=== PATIENT | female | born 1965 | race Caucasian/White ===

== ENCOUNTER 2022-10-13 18:05 | Emergency (ER) | payer MEDICAID, SELFPAY ==
--- NOTE | 2022-10-13 18:10 | XRR_ITS ---
PROCEDURE INFORMATION: Exam: XR Abdomen Exam date and time: 10/13/2022 7:48 PM Age: 57 years old Clinical indication: Constipation TECHNIQUE: Imaging protocol: Radiologic exam of the abdomen. Views: Frontal supine view of the abdomen. 1 View. COMPARISON: No relevant prior studies available. FINDINGS: Gastrointestinal tract: Scattered gas throughout the colon with minimal visible stool. Scattered gas within normal caliber small bowel. Linear gas lucencies to the left and right of the lumbar spine are most likely within the bowel. Retroperitoneal or intraperitoneal gas cannot be entirely excluded. Bones/joints: Unremarkable. XR/XR KUB [id number] IMPRESSION: 1. No evidence for obstruction or constipation. 2. Linear gas lucencies in the central abdomen may be within the bowel. Retroperitoneal or intraperitoneal gas cannot be entirely excluded. Follow-up upright views of the abdomen versus CT imaging is recommended.
[2022-10-13 18:33] VITALS: BP 128/89; PULSE 105; RESP 16; TEMP 37; O2SAT 95; BMI 17.7
--- NOTE | 2022-10-13 18:48 | W.ED.ABDPA2 ---
HPI - Abdominal Pain General: Chief Complaint: Abdominal Pain Stated Complaint: Cant Have A BM Time Seen by Provider: 10/13/22 18:43 Source: patient Mode of arrival: ambulatory Limitations: no limitations History of Present Illness: 57-year-old female states that she has not had a bowel movement and 7 days. She states that she started to have bloating and abdominal pain states her pain is low in nature she states it is cramping. She denies any vomiting she denies any fever denies any worsening improving factors. Associated Symptoms: Reports constipation; Denies chills, dysuria and fever(s) Review of Systems Const: Denies: fever(s), chills, body aches or change in appetite Eyes: Denies: blurry vision or eye discomfort ENMT: Denies: throat pain or dental pain Card: Denies: chest pain Resp: Denies: dyspnea GI: Reports: abdominal pain and constipation : Denies: dysuria Musc: Denies: neck pain or back pain Skin/Breast: Denies: rash Neuro: Denies: headache(s) Psych: Denies: depression Jasmeet/Lymph: Denies: easy bruising All/Imm: Denies: urticaria PFS ED PFSH: Medical History (Updated 10/13/22 @ 20:09 by Louis Camarena MD) No pertinent past medical history Social History Smoking and tobacco status: current every day smoker Physical Exam Const: COMMON NORMALS: no acute distress, patient oriented x3 and healthy appearing HENMT: COMMON NORMALS: normocephalic and atraumatic HEAD & SCALP: normocephalic and atraumatic Eye: COMMON NORMALS: Equal, round and reactive pupils present and EOMs intact bilaterally PUPIL: Yes Equal, round and reactive pupils present Neck/C-Spine: COMMON NORMALS: full ROM and supple Chest: COMMONS NORMALS: normal inspection of the chest and normal palpation of entire chest wall Resp: COMMON NORMALS: normal respiratory effort, No retractions, No use of accessory muscles and clear to auscultation bilaterally AUSCULTATION: clear to auscultation bilaterally Cardio: COMMON NORMALS: regular rate, regular rhythm and No murmurs present (Cardio) RATE: regular rate RHYTHM: regular rhythm GI: COMMON NORMALS: Normal to inspection, nondistended, normoactive bowel sounds present, Soft to palpation, non-tender and no masses PALPATION: Yes Soft to palpation Extremity: COMMON NORMALS: normal to inspection and full ROM Neuro: COMMON NORMALS: patient oriented x3, moves all extremities and no focal motor deficits Psych: COMMON NORMALS: mental status grossly normal, Normal thought process present and cooperative THOUGHT PROCESS: Normal thought process present Skin: COMMON NORMALS: no rashes or lesions noted and no wounds GENERAL SKIN EXAM: no rashes or lesions noted Course Vital Signs: Vital signs: Vital Signs Temperature 98.6 F 10/13/22 18:33 Pulse Rate 105 H 10/13/22 18:33 Respiratory Rate 18 10/13/22 19:27 Blood Pressure 134/97 10/13/22 19:30 Pulse Oximetry 95 10/13/22 19:30 Oxygen Delivery Me thod 10/13/22 18:33 MDM - Abdominal Pain Medical Decision Making Patient presents here with abdominal pain her pain is improved here CT scan shows no acute abnormalities her blood work is normal as well. We will get her follow-up with surgery she is to return if worsening she understands agrees to plan. Lab Data 10/13/22 19:00 10/13/22 19:00 Labs/Radiology: Radiology Impressions KUB X-Ray 10/13/22 18:10 IMPRESSION: 1. No evidence for obstruction or constipation. 2. Linear gas lucencies in the central abdomen may be within the bowel. Retroperitoneal or intraperitoneal gas cannot be entirely excluded. Follow-up upright views of the abdomen versus CT imaging is recommended. Abdomen/Pelvis CT 10/13/22 18:58 IMPRESSION: 1. No acute findings. 2. Right hemicolectomy changes. COMMENTS: Consistent with the [employer]'s Incidental Findings Committee white paper (J Am Carmencita Radiol 2018): Any incidental renal lesion less than 1 cm or classified as too small to characterize, or any incidental cystic renal lesion characterized as simple-appearing, is likely benign. No follow-up imaging is recommended for these lesions per consensus recommendations based on imaging criteria. Laboratory Results WBC 8.0 10^3/uL (4.0-10.0) 10/13/22 19:00 RBC 4.61 10^6/uL (4.1-5.3) 10/13/22 19:00 Hgb 13.8 g/dL (11.5-15.3) 10/13/22 19:00 Hct 40.7 % (37.0-47.0) 10/13/22 19:00 MCV 88.3 fl (81-99) 10/13/22 19:00 MCH 29.9 pg (28.0-34.0) 10/13/22 19:00 MCHC 33.9 g/dL (30.0-36.0) 10/13/22 19:00 RDW 13.2 % (12.1-15.1) 10/13/22 19:00 Plt Count 289 10^3/cmm (130-400) 10/13/22 19:00 MPV 9.7 fL (7.4-10.4) 10/13/22 19:00 Neut % (Auto) 61.6 % 10/13/22 19:00 Lymph % (Auto) 29.6 % 10/13/22 19:00 [place] % (Auto) 7.4 % 10/13/22 19:00 Eos % (Auto) 0.7 % 10/13/22 19:00 Baso % (Auto) 0.6 % 10/13/22 19:00 Neut # (Auto) 4.94 10^3/uL (1.8-7.7) 10/13/22 19:00 Lymph # (Auto) 2.4 10^3/uL (0.8-4.8) 10/13/22 19:00 [place] # (Auto) 0.6 10^3/uL (0.2-0.9) 10/13/22 19:00 Eos # (Auto) 0.1 10^3/uL (0.0-0.8) 10/13/22 19:00 Baso # (Auto) 0.1 10^3/uL (0.0-0.1) 10/13/22 19:00 Nucleated RBC % (auto) 0 % 10/13/22 19:00 Nucleated RBCs # 0.0 /100WBC 10/13/22 19:00 Sodium 141 mmol/L (136-145) 10/13/22 19:00 Potassium 4.1 mmol/L (3.5-5.1) 10/13/22 19:00 Chloride 108 mmol/L (98-107) H 10/13/22 19:00 Carbon Dioxide 22 mmol/L (22-29) 10/13/22 19:00 Anion Gap 15.1 (5-19) 10/13/22 19:00 BUN 13 mg/dL (6-20) 10/13/22 19:00 Creatinine 0.8 mg/dL (0.5-0.9) 10/13/22 19:00 GFR Calculation 73.9 mL/min (90-130) L 10/13/22 19:00 Glucose 99 mg/dL (65-115) 10/13/22 19:00 Calculated Osmolality 292 mOsm/kg (285-295) 10/13/22 19:00 Lactate 0.7 mmol/L (0.5-2.2) 10/13/22 19:31 Calcium 9.5 mg/dL (8.5-10.5) 10/13/22 19:00 Total Bilirubin 0.2 mg/dL (0.15-1.2) 10/13/22 19:00 AST 17 U/L (0-32) 10/13/22 19:00 ALT 10 U/L (0-33) 10/13/22 19:00 Alkaline Phosphatase 73 U/L (35-105) 10/13/22 19:00 Total Protein 6.9 g/dL (6.6-8.7) 10/13/22 19:00 Albumin 4.4 g/dL (3.5-5.2) 10/13/22 19:00 Globulin 2.5 g/dL (1.3-4.6) 10/13/22 19:00 Lipase 35 U/L (13-60) 10/13/22 19:00 Discharge Plan Discharge Patient Disposition: Home Clinical Impression: Abdominal pain Condition: Stable Prescriptions: New hydrocodone-acetaminophen 5-325 mg tablet 1 tab PO Q6H PRN (Reason: pain) Qty: 14 0RF ondansetron 4 mg tablet,disintegrating 4 mg PO Q6H PRN (Reason: nausea and vomiting) Qty: 14 0RF No Action benzonatate 100 mg capsule 100 mg PO BID PRN (Reason: cough) 5 Days Qty: 10 0RF doxycycline hyclate 100 mg tablet 100 mg PO BID 5 Days Qty: 10 0RF prednisone 20 mg tablet 20 mg PO BID 5 Days Qty: 10 0RF amoxicillin-pot clavulanate 875-125 mg tablet 1 tab PO BID 7 Days Qty: 14 0RF guaifenesin 200 mg tablet 200 mg PO Q4H PRN (Reason: congestion) Qty: 30 0RF Discharge Orders: Discharge ED (Routine); Ordered 10/13/22 Ordered By: Louis Camarena Referrals: Layton Corona MD [Physician] - 1-3 days Discharge Diet: Advance as tolerated Discharge Activity: Resume usual activity Patient Instructions: Abdominal Pain (ED), Opioid Safety Coding Level of Care Code ED Insurance Verifier for Chg Fwd Exam Comprehensive
--- NOTE | 2022-10-13 18:58 | CTR_ITS ---
PROCEDURE INFORMATION: Exam: CT Abdomen And Pelvis With Contrast Exam date and time: 10/13/2022 7:34 PM Age: 57 years old Clinical indication: Abdominal pain; Acute; Prior surgery; Surgery date: 6+ months; Surgery type: Intestinal; Additional info: Abd pain TECHNIQUE: Imaging protocol: Computed tomography of the abdomen and pelvis with contrast. Radiation optimization: All CT scans at this facility use at least one of these dose optimization techniques: automated exposure control; mA and/or kV adjustment per patient size (includes targeted exams where dose is matched to clinical indication); or iterative reconstruction. Contrast material: OMNIPAQUE 350; Contrast volume: 95 ml; Contrast route: INTRAVENOUS (IV); COMPARISON: No relevant prior studies available. RADIATION DOSE METRICS: Total DLP (mGy-cm): 344.22 FINDINGS: Liver: Right liver lobe cyst, Hounsfield units less than 20. Multiple tiny hypodensities in the liver are too small to characterize but are most likely cysts. Gallbladder and bile ducts: Partially contracted gallbladder. The bile ducts are normal. Pancreas: Diffuse borderline dilatation of the pancreatic duct. No focal pancreatic lesion identified. Spleen: Normal. No splenomegaly. Adrenal glands: Normal. No mass. Kidneys and ureters: Right renal cyst, Hounsfield units less than 20. The kidneys are otherwise unremarkable. No calculus or hydronephrosis. Stomach and bowel: Stomach is decompressed. No wall thickening. Right hemicolectomy with ileocolonic anastomosis to the mid transverse colon. The small bowel and colon are otherwise unremarkable. No obstruction. Appendix: The appendix is surgically absent. Intraperitoneal space: Unremarkable. No free air. No significant fluid collection. Vasculature: Arterial calcifications. No aneurysm. Lymph nodes: Unremarkable. No enlarged lymph nodes. Urinary bladder: Unremarkable as visualized. Reproductive: Prominent left adnexal vessels. This can be seen with pelvic congestion syndrome. The uterus and ovaries are unremarkable. Bones/joints: Unremarkable. No acute fracture. Soft tissues: Unremarkable. CT/CT abdomen pelvis w con* [id number] IMPRESSION: 1. No acute findings. 2. Right hemicolectomy changes. COMMENTS: Consistent with the [place] [employer]'s Incidental Findings Committee white paper (J Am Carmencita Radiol 2018): Any incidental renal lesion less than 1 cm or classified as too small to characterize, or any incidental cystic renal lesion characterized as simple-appearing, is likely benign. No follow-up imaging is recommended for these lesions per consensus recommendations based on imaging criteria.
[2022-10-13 19:05] VITALS: O2SAT 97
[2022-10-13 19:05] LABS: Basophils # 0.1 10^3/uL (0.0-0.1); Basophils % 0.6 %; Eosinophils # 0.1 10^3/uL (0.0-0.8); Eosinophils % 0.7 %; Hematocrit 40.7 % (37.0-47.0); Hemoglobin 13.8 g/dL (11.5-15.3); Lymphocytes # 2.4 10^3/uL (0.8-4.8); Lymphocytes % 29.6 %; Mean Corpuscular HGB Conc 33.9 g/dL (30.0-36.0); Mean Corpuscular Hemoglobin 29.9 pg (28.0-34.0); Mean Corpuscular Volume 88.3 fl (81-99); Mean Platelet Volume 9.7 fL (7.4-10.4); Monocytes # 0.6 10^3/uL (0.2-0.9); Monocytes % 7.4 %; Neutrophils # 4.94 10^3/uL (1.8-7.7); Neutrophils % 61.6 %; Nucleated Red Blood Cells % 0 %; Platelet Count 289 10^3/cmm (130-400); Red Blood Count 4.61 10^6/uL (4.1-5.3); Red Cell Distribution Width 13.2 % (12.1-15.1)
[2022-10-13 19:15] VITALS: BP 132/104; O2SAT 93
[2022-10-13] MEDS: ondansetron 2 mg/ML SDV 2 mL 4 MG IVP (19:26)
[2022-10-13 19:27] VITALS: RESP 18; O2SAT 97
[2022-10-13 19:27] LABS: Alanine Aminotransferase 10 U/L (0-33); Albumin Level 4.4 g/dL (3.5-5.2); Alkaline Phosphatase 73 U/L (35-105); Anion Gap 15.1 (5-19); Aspartate Amino Transferase 17 U/L (0-32); Blood Urea Nitrogen 13 mg/dL (6-20); Calcium 9.5 mg/dL (8.5-10.5); Carbon Dioxide 22 mmol/L (22-29); Chloride 108 mmol/L (98-107); Globulin 2.5 g/dL (1.3-4.6); Glomerular Filtration Rate 73.9 mL/min (90-130); Glucose 99 mg/dL (65-115); Lipase 35 U/L (13-60); Osmolality Calculated 292 mOsm/kg (285-295); Potassium 4.1 mmol/L (3.5-5.1); Sodium 141 mmol/L (136-145); Total Bilirubin 0.2 mg/dL (0.15-1.2); Total Protein 6.9 g/dL (6.6-8.7)
[2022-10-13] MEDS: morphine 4 mg/mL SDV 1 mL IVP (19:27)
[2022-10-13] MEDS: sodium chloride 0.9% 1,000 ML 999 ML IV (19:28)
[2022-10-13 19:30] VITALS: BP 134/97; O2SAT 95
[2022-10-13] MEDS: iohexol 350 mg/mL 500 mL Btl (per mL) IV (19:58)
[2022-10-13 20:04] LABS: Lactate (Lactic Acid level) 0.7 mmol/L (0.5-2.2)
[2022-10-13] MEDS: HYDROcodone-acetaminophen 5-325 mg Tablet 1 TAB PO (20:16)
[2022-10-13 20:30] VITALS: BP 127/85; PULSE 72; RESP 18; O2SAT 96
--- NOTE | 2022-10-14 08:50 | DCPLANNER ---
Addendum entered by Meaghan Mirza 11/05/22 11:14: Patient did attend appointment Addendum entered by Meaghan Mirza 10/15/22 12:20: Patient has a follow up appointment scheduled for Thursday, November 03, 2022 at 2:[address] Delgadillo at general surgery. Clinic will call patient with appointment information. Addendum entered by Meaghan Mirza 10/14/22 08:51: patients information was sent to the front office staff at general surgery. Original Note: Case manger had message to schedule a follow up appointment for patient with general surgery. meat and seafood manager sent patients information to the front office staff at [facility]. Patients information will be printed and reviewed. Clinic will call patient with appointment information.
== END 2022-10-13 20:32 | disposition home or self-care (01) ==
PROVIDERS: Emergency Provider Emergency Medicine
DX: R10.9 Unspecified abdominal pain (principal)
CPT/HCPCS: 74018; 74177; 80053; 83605; 83690; 85025; 96361; 96374; 96375; 99285; J2270; J2405; J7030; Q9967

== ENCOUNTER 2022-11-27 05:29 | Day surgery (SDC) | payer OTHER, MEDICAID, SELFPAY ==
[2022-11-24 11:56] VITALS: BMI 16.9
[2022-11-27 06:11] VITALS: BP 84/66; PULSE 110; RESP 16; TEMP 36.1; O2SAT 95
[2022-11-27] MEDS: sodium chloride 0.9% 1,000 ML 30 ML IV (06:16)
--- NOTE | 2022-11-27 06:19 | ANES.PREANE2 ---
Pre-Anesthetic Assessment Height/Weight: Height 1.75 m Weight 52.163 kg Temp Pulse Resp BP Pulse Ox O2 Del Method 97.0 F L 110 H 16 84/66 95 11/27/22 06:11 11/27/22 06:11 11/27/22 06:11 11/27/22 06:11 11/27/22 06:11 11/27/22 06:11 Operation Date: 11/27/22 07:00 Proposed Procedures p Colonoscopy 60735,Z86.010(Not Applicable) - Anders Delgadillo DO Familial anesthetic complications: None Was Beta Cory taken within 24 hours: N/A Was Clonidine taken within 24 hours: N/A Last intake: Intake Last Liquid Date 11/26/22 Last Liquid Time 22:00 Last Solid Date 11/25/22 Social Tobacco and No alcohol 1 pack(s) per day Exam alert, oriented x 3, clear to auscultation bilaterally and regular rate & rhythm Airway Submandibular: within normal limits Cervical ROM: within normal limits Mallampati: Class II Dentition: chipped Comments: Comments: Several missing, poor dentition History/ROS No significant history except as noted and No significant complaints Pulmonary Cough CV/HEM None reported None reported Hepatic None reported GI None reported Metabolic None reported Musc/skel Osteoarthritis/DJD Neuropsych Anxiety and Depression Anesthetic Plan ASA status: 2 Anesthesia: Anesthesia Evaluation, General and MAC Risk of > 500 ml blood loss (7ml/kg in children): No Medications/Allergies Home Medications Medication Instructions Recorded Confirmed Last Taken Type loperamide 2 mg tablet (Imodium 2 mg PO QID PRN loose stool #240 11/03/22 11/27/22 11/26/22 Rx A-D) tabs buspirone 5 mg tablet 5 mg PO DAILY 11/27/22 11/27/22 11/26/22 History clonazepam 1 mg tablet 1.5 mg PO TID 11/27/22 11/27/22 11/26/22 History meloxicam 15 mg tablet 15 mg PO DAILY 11/27/22 11/27/22 11/26/22 History prazosin 2 mg capsule 2 mg PO BEDTIME 11/27/22 11/27/22 11/26/22 History venlafaxine 75 mg tablet,extended 75 mg PO DAILY 01/13/23 01/13/23 01/12/23 History release 24 hr Allergies Allergy/AdvReac Type Severity Reaction Status Date / Time naproxen [From Aleve] Allergy Intermediate ADR-Agitate Verified 11/27/22 06:04 d Current Medications Generic Name Dose Route Start Last Admin Trade Name Freq PRN Reason Stop Dose Admin Sodium Chloride 1,000 mls @ 30 mls/hr 11/27/22 06:00 11/27/22 06:16 Sodium Chloride 0.9% IV 11/28/22 05:59 30 mls/hr .Q24H MASSIEL Administration PFSH Anesthesia Medical History (Updated 11/03/22 @ 15:15 by Anders Delgadillo DO) History of colon polyps No pertinent past medical history Surgical History (Updated 11/03/22 @ 15:11 by Anders Delgadillo DO) History of colon resection History of tubal ligation Social History Smoking and tobacco status: current every day smoker Data Anesthesia Cardiac Studies: No Data to Display
--- NOTE | 2022-11-27 06:22 | W.PM.OPSUD ---
Surgery/Procedure H&P Update DATE OF PROCEDURE: November 27, 2022 DATE H&P PERFORMED: 11/03/22 PLANNED PROCEDURE: Operation Date: 11/27/22 07:00 Proposed Procedures p Colonoscopy [id number],Z86.010(Not Applicable) - Anders Delgadillo DO
[2022-11-27 07:16] VITALS: BP 93/68; PULSE 85; RESP 16; TEMP 36.1; O2SAT 98
[2022-11-27 07:32] VITALS: BP 109/88; PULSE 86; RESP 18; O2SAT 96
--- NOTE | 2022-11-27 19:34 | ANE.PACU2 ---
Inpatient post-anesthesia follow up: Airway intact: Yes Vital signs: Temperature 97 F Pulse Rate 86 Respiratory Rate 18 Blood Pressure 109/88 Pulse Oximetry 96 Oxygen Delivery Me thod Room Air Oxygen Flow Rate Fraction of Inspir ed Oxygen Hydration adequate: Yes Nausea and vomiting: No Pain level: 1 Mental status: Baseline
== END 2022-11-27 07:57 | disposition home or self-care (01) ==
PROVIDERS: PCP Family Medicine; Visit Provider Surgery
PROC: 0DJD8ZZ Inspection of Lower Intestinal Tract, Via Natural or Artificial Opening Endoscopic (ICD-10-PCS; CPT 45378; principal; 2022-11-27 07:00)
DX: R10.9 Unspecified abdominal pain (principal); Z86.010 Personal history of colon polyps; Z90.49 Acquired absence of other specified parts of digestive tract; F17.210 Nicotine dependence, cigarettes, uncomplicated
CPT/HCPCS: 45380; 82274; 83630; 87493; 87506; 88305; J2704; J7030

== ENCOUNTER 2022-12-25 22:32 | Emergency (ER) | payer MEDICAID, SELFPAY ==
[2022-12-25 22:41] VITALS: BP 135/86; PULSE 82; RESP 18; TEMP 36.7; O2SAT 97; BMI 17.7
--- NOTE | 2022-12-25 22:50 | ECG_ITS ---
[facility] Test Date: 2022-12-25 Pat Name: Barbara Hagen Department: Room: Gender: Female In Home Sales Representative: : 1965 Requested By: Steven Epps Order Number: [id number] Genny MD: Rafi Taylor M.D. Measurements Intervals [place] Rate: 81 P: 79 MO: 170 QRS: -70 QRSD: 94 T: 63 QT: 355 QTc: 413 Interpretive Statements SINUS RHYTHM LEFT AXIS DEVIATION [QRS AXIS < -30] PATTERN CONSISTENT WITH PULMONARY DISEASE INCOMPLETE RIGHT BUNDLE BRANCH BLOCK [90+ ms QRS DURATION, TERMINAL R IN V1/V2, 40+ ms S IN I/aVL/V4/V5/V6] No previous ECG available for comparison Electronically Signed On 12-26-2022 4:41:18 BOTTLING SUPERVISOR by Rafi Taylor M.D. [email or web address]
--- NOTE | 2022-12-25 23:26 | ED_ITS ---
HPI - Weakness General: Chief complaint: Weakness Stated complaint: DEHYDRATION/LEFT SIDE NUMB Time Seen by Provider: 12/25/22 22:47 History of Present Illness: Barbara is a 57-year-old female that presents to the emergency department with complaints of weight loss, inability to eat, inability to swallow, weakness, left arm numbness and tingling. Reports she has had chronic abdominal complaints, with irritable bowel syndrome. She states she had a colonoscopy 2 years ago and ended up undergoing a partial colectomy. Since that time her chronic abdominal issues have worsened Patient states in the last 3 weeks she has had difficulty eating or keeping fluids or foods down. She is concerned that she is dehydrated She is also concerned that she may be having a cardiac event due to her left arm numbness. Patient is very tearful and states that she has not been taking her antidepre ssants due to her swallow issues. Patient's story is very convoluted, difficult l to follow, and inconsistent Associated symptoms: Reports chills and nausea; Denies chest pain, confusion, dysuria, easy bruising, fever(s), headache(s) or vomiting Review of Systems General: Reports: 10 or more systems reviewed and unremarkable except in HPI and below Const: Reports: chills, change in weight (10 pound weight loss in the last 3 weeks-unintentional) and fatigue; Denies: fever(s), change in appetite or malaise Eyes: Denies: change in vision, eye discomfort, eye discharge or eye redness ENMT: Denies: throat pain, enlarged tonsils, odynophagia, hoarseness, ear or mastoid pain, ear discharge, change in hearing, tinnitus, nasal discharge, nasal congestion, post nasal drip or sinus pain Card: Denies: chest pain, palpitations, irregular heart rhythm, edema, dyspnea on exertion, orthopnea or leg pain with exertion Resp: Reports: dyspnea and productive cough; Denies: non-productive cough, wheezing, stridor or chest congestion GI: Reports: abdominal pain, nausea, dysphagia, diarrhea, constipation, bloati ng and GI cramping; Denies: vomiting or hematochezia : Denies: flank pain, difficulty voiding, dysuria, urinary frequency, urinary urgency, urinary hesitancy, oliguria or hematuria Musc: Denies: neck pain, back pain, extremity pain, joint pain, joint swelling, joint redness, joint warmth or muscle weakness Skin/Breast: Denies: rash, pruritus, erythema, photosensitivity or new lesions Neuro: Denies: headache(s), numbness in extremities, weakness in extremities, sensory changes, lack of coordination, difficulty walking, frequent falls, dizziness, confusion, Slurred speech present, difficulty communicating thoughts, seizure-like activity or involuntary movements Endo: Denies: polyuria, polydipsia or tired all the time Jasmeet/Lymph: Denies: easy bruising or easy bleeding PFSH ED PFSH: Medical History (Updated 12/26/22 @ 01:49 by RUDI Miles) History of colon polyps Irritable bowel disease No pertinent past medical history Surgical History History of colon resection History of tubal ligation Social History Smoking and tobacco status: current every day smoker Physical Exam Const: COMMON NORMALS: no acute distress, patient oriented x3 and alert GENERAL APPEARANCE: cooperative ORIENTATION/CONSCIOUSNESS: Yes awake, Yes oriented to person, Yes oriented to place and Yes oriented to time HENMT: COMMON NORMALS: normocephalic and atraumatic HEAD & SCALP: normocephalic and atraumatic FACE & SINUS: normal facial exam MOUTH: Normal oral and palatal mucosa present THROAT: posterior oropharynx normal Eye: COMMON NORMALS: Equal, round and reactive pupils present, EOMs intact bilaterally, conjunctivae normal and no scleral icterus GENERAL EYE: appearance normal, both eyes and all related structures ALIGNMENT: Yes alignment normal PERIORBITAL: periorbital findings normal CONJUNCTIVA: Yes conjunctivae normal PUPIL: Yes Equal, round and reactive pupils present Neck/C-Spine: COMMON NORMALS: full ROM GENERAL: Yes normal visual inspection Lymph: LYMPHATIC: no lymphadenopathy noted Chest: COMMONS NORMALS: normal inspection of the chest Breast/axilla ins pection: Yes no chest deformity, asymmetry, normal contours, no nodules, masses, tenderness Resp: COMMON NORMALS: normal respiratory effort, No retractions, No use of accessory muscles and clear to auscultation bilaterally EFFORT & INSPECTION: Yes able to speak in complete sentences and Yes symmetric chest movement AUSCULTATION: clear to auscultation bilaterally Cardio: COMMON NORMALS: regular rate, regular rhythm and Peripheral pulses 2+ throughout RATE: regular rate RHYTHM: regular rhythm PERIPHERAL PULSES: Peripheral pulses 2+ throughout GI: COMMON NORMALS: Normal to inspection, nondistended, normoactive bowel sounds present, Soft to palpation and No hepatosplenomegaly present INSPECTION: Yes scar and Yes Localized GI swelling present AUSCULTATION: Yes Hyperactive bowel sounds present PALPATION: Yes Soft to palpation and Yes No hepatosplenomegaly present RECTAL EXAM: deferred Extremity: COMMON NORMALS: normal to inspection GENERAL: Yes normal exam except as noted Neuro: COMMON NORMALS: patient oriented x3 SENSORIUM/ORIENTATION: Yes alert, Yes oriented to person, Yes oriented to place and Yes oriented to time CRANIAL NERVES: Yes CN normal except as noted Psych: COMMON NORMALS: mental status grossly normal, Normal thought process present, cooperative, activity/motor behavior normal, denies homicidal ideation and denies suicidal ideation THOUGHT PROCESS: Normal thought process present Skin: COMMON NORMALS: no rashes or lesions noted, no wounds and turgor normal GENERAL SKIN EXAM: no rashes or lesions noted and turgor normal Course Vital Signs: Vital signs: Vital Signs Temperature 98.1 F 12/25/22 22:41 Pulse Rate 82 12/25/22 22:41 Respiratory Rate 18 12/25/22 22:41 Blood Pressure 135/86 12/25/22 22:41 Pulse Oximetry 97 12/25/22 22:41 MDM - Weakness Medical Decision Making Patient is a 57-year-old female that presents to the emergency department with complaints of weakness, left arm numbness, difficulty tolerating p.o. intake. Patient orts these symptoms have persisted for 3 weeks. Patient is chronically ill-appearing and reports a 10 pound weight loss in the last 3 weeks. Patient story is inconsistent. She is tearful. She has not been taking her medications as prescribed Patient has already received 1 L of fluid. I have ordered another liter of normal saline, a number of laboratory studies, EKG, and CT imagery of chest abdomen and pelvis Patient has completed another liter of normal saline and reports she does feel much better. Her EKG change from baseline with an incomplete right bundle branch block. Laboratory studies included CBC, CMP, mag, phosphorus, troponin, BNP, lipase. Laboratory studies reveal no leukocytosis, anemia, electrolyte disturbance, liver or kidney dysfunction, elevated lipase, troponin, elevated BNP. Patient was able to provide us with a urine specimen which was negative for infection or hematuria. We have obtained a CT which reveals a stable partial right colectomy but also has findings that include lateral apical pleural and parenchymal scarring with nodular scarring in the right lung apex. There is a large nodule measuring 8 mm in diameter. Patient also has nodular or cystic lesions noted to liver and kidney. Patient needs to follow-up with primary care regarding these diagnostic findings. I have discussed these findings with the patient and she is agreeable to follow-up with PCP Patient was given ice chips and is tolerating them fine. I am going to treat her with Zofran ODT at home. Patient does not have a ride home at this time but she is ready for discharge. . Lab Data 12/25/22 22:48 12/25/22 22:48 Radiology Impressions Chest/Abdomen/Pelvis CT 12/25/22 23:29 IMPRESSION: 1. Bilateral apical pleural and/or parenchymal scarring. 2. Nodular scarring in the right lung apex with the largest nodule measuring 8 mm in diameter. Followup as discussed below. For patients at low risk (minimal or absent history of smoking and of other known risk factors), recommend CT Chest at 3-6 months, then consider CT Chest at 18-24 months. For patients at high risk (history of smoking or of other known risk factors), recommend CT Chest at 3-6 months, then CT Chest IMPRESSION: Stable partial right colectomy. COMMENTS: Consistent with the [employer]'s Incidental Findings Committee white paper (J Am Carmencita Radiol 2018): Any incidental renal lesion less than 1 cm or classified as too small to characterize, or any incidental cystic renal lesion characterized as simple-appearing, is likely benign. No follow-up imaging is recommended for these lesions per consensus recommendations based on imaging criteria. Laboratory Results WBC 8.9 10^3/uL (4.0-10.0) 12/25/22 22:48 RBC 4.46 10^6/uL (4.1-5.3) 12/25/22 22:48 Hgb 13.1 g/dL (11.5-15.3) 12/25/22 22:48 Hct 40.6 % (37.0-47.0) 12/25/22 22:48 MCV 91.0 fl (81-99) 12/25/22 22:48 MCH 29.4 pg (28.0-34.0) 12/25/22 22:48 MCHC 32.3 g/dL (30.0-36.0) 12/25/22 22:48 RDW 13.5 % (12.1-15.1) 12/25/22 22:48 Plt Count 223 10^3/cmm (130-400) 12/25/22 22:48 MPV 12.3 fL (7.4-10.4) H 12/25/22 22:48 Neut % (Auto) 59.0 % 12/25/22 22:48 Lymph % (Auto) 31.2 % 12/25/22 22:48 [place] % (Auto) 8.2 % 12/25/22 22:48 Eos % (Auto) 0.6 % 12/25/22 22:48 Baso % (Auto) 0.8 % 12/25/22 22:48 Neut # (Auto) 5.25 10^3/uL (1.8-7.7) 12/25/22 22:48 Lymph # (Auto) 2.8 10^3/uL (0.8-4.8) 12/25/22 22:48 [place] # (Auto) 0.7 10^3/uL (0.2-0.9) 12/25/22 22:48 Eos # (Auto) 0.1 10^3/uL (0.0-0.8) 12/25/22 22:48 Baso # (Auto) 0.1 10^3/uL (0.0-0.1) 12/25/22 22:48 Nucleated RBC % (auto) 0 % 12/25/22 22:48 Nucleated RBCs # 0.0 /100WBC 12/25/22 22:48 Sodium 144 mmol/L (136-145) 12/25/22 22:48 Potassium 3.6 mmol/L (3.5-5.1) 12/25/22 22:48 Chloride 107 mmol/L (98-107) 12/25/22 22:48 Carbon Dioxide 22 mmol/L (22-29) 12/25/22 22:48 Anion Gap 18.6 (5-19) 12/25/22 22:48 BUN 15 mg/dL (6-20) 12/25/22 22:48 Creatinine 0.8 mg/dL (0.5-0.9) 12/25/22 22:48 GFR Calculation 73.9 mL/min (90-130) L 12/25/22 22:48 Glucose 108 mg/dL (65-115) 12/25/22 22:48 Calculated Osmolality 299 mOsm/kg (285-295) H 12/25/22 22:48 Calcium 9.8 mg/dL (8.5-10.5) 12/25/22 22:48 Phosphorus 3.2 mg/dL (2.5-4.5) 12/25/22 22:48 Magnesium 1.8 mg/dL (1.7-2.3) 12/25/22 22:48 Total Bilirubin 0.4 mg/dL (0.15-1.2) 12/25/22 22:48 AST 16 U/L (0-32) 12/25/22 22:48 ALT 10 U/L (0-33) 12/25/22 22:48 Alkaline Phosphatase 64 U/L (35-105) 12/25/22 22:48 Troponin T Baseline 9 ng/L (0-10) 12/25/22 22:48 NT-Pro-B Natriuret Pep 90 pg/mL (0-125) 12/25/22 22:48 Total Protein 6.7 g/dL (6.6-8.7) 12/25/22 22:48 Albumin 4.7 g/dL (3.5-5.2) 12/25/22 22:48 Globulin 2.0 g/dL (1.3-4.6) 12/25/22 22:48 Lipase 18 U/L (13-60) 12/25/22 22:48 Urine Color Colorless (Yellow) 12/26/22 01:27 Urine Appearance Clear (CLEAR) 12/26/22 01:27 Urine pH 7 (5-7) 12/26/22 01:27 Ur Specific [place] 1.005 (1.005-1.030) 12/26/22 01:27 Urine Protein Neg (Negative) 12/26/22 01:27 Urine Glucose (UA) Norm (Normal) 12/26/22 01:27 Urine Ketones Negative (Negative) 12/26/22 01:27 Urine Blood Neg (Negative) 12/26/22 01:27 Urine Nitrate Negative (Negative) 12/26/22 01:27 Urine Bilirubin Neg (Negative) 12/26/22 01:27 Urine Urobilinogen Neg mg/dL (Negative) 12/26/22 01:27 Ur Leukocyte Esterase Negative (Negative) 12/26/22 01:27 Discharge Plan Discharge Clinical Impression: Dehydration, Nausea, Caloric malnutrition Condition: Stable Prescriptions: New ondansetron 4 mg tablet,disintegrating 4 mg PO Q8H PRN (Reason: nausea and vomiting) 5 Days Qty: 20 0RF No Action loperamide [Imodium A-D] 2 mg tablet 2 mg PO QID PRN (Reason: loose stool) Qty: 240 1RF dicyclomine 20 mg tablet 20 mg PO QID Qty: 120 0RF buspirone 5 mg Tablet 5 mg PO DAILY meloxicam 15 mg Tablet 15 mg PO DAILY Hold Instructions: Resume on 11/29/22. clonazepam 1 mg Tablet 1.5 mg PO TID prazosin 2 mg Capsule 2 mg PO BEDTIME venlafaxine 75 mg Tablet Extended Release 24hr 75 mg PO DAILY Referrals: Lauri Gaona DO [Primary Care Provider] - Discharge Diet: Advance as tolerated Discharge Activity: Resume usual activity Patient Instructions: Dehydration - Adult, Malnutrition (DC), Acute Nausea and Vomiting (ED) Activity Restrictions/Additional Instructions: Please take your medications as prescribed Zofran can be taken up to 3 times a day for nausea Please follow-up with your primary care doctor on Wednesday. As discussed the CT we performed did reveal multiple nodules that need to be further evaluated. This includes lung, liver, kidney. Coding Level of Care Code ED Wire Coating Machine Operator for Rema Lucas
--- NOTE | 2022-12-25 23:29 | CTR_ITS ---
PROCEDURE INFORMATION: Exam: CT Chest With Contrast; Diagnostic Exam date and time: 12/25/2022 11:45 PM Age: 57 years old Clinical indication: Abdominal pain; Generalized; Chest pressure; Additional info: Cough, shortness of breath, chest pain, left arm pain, abd p TECHNIQUE: Imaging protocol: Diagnostic computed tomography of the chest with contrast. Radiation optimization: All CT scans at this facility use at least one of these dose optimization techniques: automated exposure control; mA and/or kV adjustment per patient size (includes targeted exams where dose is matched to clinical indication); or iterative reconstruction. Contrast material: OMNI 350; Contrast volume: 75 ml; Contrast route: INTRAVENOUS (IV); Other protocol: This patient has received [address] and 0 known cardiac nuclear medicine studies in the 12 months prior to the current study. COMPARISON: CT abdomen pelvis w con* [id number] 10/13/2022 7:34 PM RADIATION DOSE METRICS: Total DLP (mGy-cm): 271.3 FINDINGS: Lungs: Nodular scarring in the right lung apex with the largest nodule measuring 8 mm in diameter. Followup as discussed below. Pleural spaces: Bilateral apical pleural and/or parenchymal scarring. Heart: Unremarkable. No cardiomegaly. No pericardial effusion. Lymph nodes: Unremarkable. No enlarged lymph nodes. Vasculature: Direct origin of the left vertebral artery from the aortic arch which is a normal variant seen in 1% of the population. Calcification of the thoracic aorta and/or great vessels consistent with atherosclerotic vessel disease. Bones/joints: Unremarkable. No acute fracture. Soft tissues: Unremarkable. at 18-24 months. (Reference: [place]) References: Kanahodemarco H, et al. Guidelines for Management of Incidental Pulmonary Nodules Detected on CT Images: From the Fleischner Society 2017. Radiology. 2017;284(1):228-243. PROCEDURE INFORMATION: Exam: CT Abdomen And Pelvis With Contrast Exam date and time: 12/25/2022 11:45 PM Age: 57 years old Clinical indication: Abdominal pain; Generalized; Chest pressure; Additional info: Cough, shortness of breath, chest pain, left arm pain, abd p TECHNIQUE: Imaging protocol: Computed tomography of the abdomen and pelvis with contrast. Radiation optimization: All CT scans at this facility use at least one of these dose optimization techniques: automated exposure control; mA and/or kV adjustment per patient size (includes targeted exams where dose is matched to clinical indication); or iterative reconstruction. Contrast material: OMNI 350; Contrast volume: 75 ml; Contrast route: INTRAVENOUS (IV); Other protocol: This patient has received [address] and 0 known cardiac nuclear medicine studies in the 12 months prior to the current study. COMPARISON: CT abdomen pelvis w con* [id number] 10/13/2022 7:34 PM RADIATION DOSE METRICS: Total DLP (mGy-cm): 227.1 FINDINGS: Liver: Stable hepatic cysts at least one of which measures larger than a centimeter in size. Other low-attenuation lesions in the liver are too small to characterize. Gallbladder and bile ducts: Normal. No calcified stones. No ductal dilation. Pancreas: Normal. No ductal dilation. Spleen: Normal. No splenomegaly. Adrenal glands: Normal. No mass. Kidneys and ureters: Right renal simple cyst measuring >1.0 cm . Stomach and bowel: Stable partial right colectomy. Appendix: No evidence of appendicitis. Intraperitoneal space: Unremarkable. No free air. No significant fluid collection. Vasculature: One or more calcified pelvic phleboliths. Lymph nodes: Unremarkable. No enlarged lymph nodes. Urinary bladder: Unremarkable as visualized. Reproductive: Unremarkable as visualized. Bones/joints: Unremarkable. No acute fracture. Soft tissues: Unremarkable. CT/CT chest abdpel w/*[id number] IMPRESSION: 1. Bilateral apical pleural and/or parenchymal scarring. 2. Nodular scarring in the right lung apex with the largest nodule measuring 8 mm in diameter. Followup as discussed below. For patients at low risk (minimal or absent history of smoking and of other known risk factors), recommend CT Chest at 3-6 months, then consider CT Chest at 18-24 months. For patients at high risk (history of smoking or of other known risk factors), recommend CT Chest at 3-6 months, then CT Chest IMPRESSION: Stable partial right colectomy. COMMENTS: Consistent with the [employer]'s Incidental Findings Committee white paper (J Am Carmencita Radiol 2018): Any incidental renal lesion less than 1 cm or classified as too small to characterize, or any incidental cystic renal lesion characterized as simple-appearing, is likely benign. No follow-up imaging is recommended for these lesions per consensus recommendations based on imaging criteria.
[2022-12-25 23:33] LABS: Basophils # 0.1 10^3/uL (0.0-0.1); Basophils % 0.8 %; Eosinophils # 0.1 10^3/uL (0.0-0.8); Eosinophils % 0.6 %; Hematocrit 40.6 % (37.0-47.0); Hemoglobin 13.1 g/dL (11.5-15.3); Lymphocytes # 2.8 10^3/uL (0.8-4.8); Lymphocytes % 31.2 %; Mean Corpuscular HGB Conc 32.3 g/dL (30.0-36.0); Mean Corpuscular Hemoglobin 29.4 pg (28.0-34.0); Mean Platelet Volume 12.3 fL (7.4-10.4); Monocytes # 0.7 10^3/uL (0.2-0.9); Monocytes % 8.2 %; Neutrophils # 5.25 10^3/uL (1.8-7.7); Nucleated Red Blood Cells % 0 %; Platelet Count 223 10^3/cmm (130-400); Red Blood Count 4.46 10^6/uL (4.1-5.3); Red Cell Distribution Width 13.5 % (12.1-15.1); White Blood Count 8.9 10^3/uL (4.0-10.0)
[2022-12-25] MEDS: iohexol 350 mg/mL 500 mL Btl (per mL) IV (23:33)
[2022-12-25] MEDS: sodium chloride 0.9% 1,000 ML 999 ML IV (23:35)
[2022-12-25] MEDS: ondansetron 2 mg/ML SDV 2 mL 4 MG IVP (23:36)
[2022-12-25 23:49] LABS: Troponin(5th) Baseline 9 ng/L (0-10)
[2022-12-25 23:55] LABS: Alanine Aminotransferase 10 U/L (0-33); Albumin Level 4.7 g/dL (3.5-5.2); Alkaline Phosphatase 64 U/L (35-105); Anion Gap 18.6 (5-19); Aspartate Amino Transferase 16 U/L (0-32); Blood Urea Nitrogen 15 mg/dL (6-20); Calcium 9.8 mg/dL (8.5-10.5); Carbon Dioxide 22 mmol/L (22-29); Chloride 107 mmol/L (98-107); Glomerular Filtration Rate 73.9 mL/min (90-130); Glucose 108 mg/dL (65-115); Lipase 18 U/L (13-60); Magnesium 1.8 mg/dL (1.7-2.3); NT Pro B Type Natriuretic Pept 90 pg/mL (0-125); Osmolality Calculated 299 mOsm/kg (285-295); Phosphorus 3.2 mg/dL (2.5-4.5); Potassium 3.6 mmol/L (3.5-5.1); Sodium 144 mmol/L (136-145); Total Bilirubin 0.4 mg/dL (0.15-1.2); Total Protein 6.7 g/dL (6.6-8.7)
--- NOTE | 2022-12-26 01:24 | ECG_ITS ---
[facility] Test Date: 2022-12-26 Pat Name: Barbara Hagen Department: Room: Gender: Female Video Coordinator: : 1965 Requested By: Steven Epps Order Number: [id number] Genny MD: Rafi Taylor M.D. Measurements Intervals [place] Rate: 64 P: 82 ND: 167 QRS: -64 QRSD: 99 T: 58 QT: 386 QTc: 401 Interpretive Statements SINUS RHYTHM LEFT AXIS DEVIATION [QRS AXIS < -30] PATTERN CONSISTENT WITH PULMONARY DISEASE INCOMPLETE RIGHT BUNDLE BRANCH BLOCK [90+ ms QRS DURATION, TERMINAL R IN V1/V2, 40+ ms S IN I/aVL/V4/V5/V6] Compared to ECG 12/25/2022 22:50:57 No significant changes Electronically Signed On 12-26-2022 4:41:29 BRAND ENGINEER by Rafi Taylor M.D. [id number]
[2022-12-26 01:40] LABS: Add Urine Microscopic? NO; Charge for UA Resulting for Rev
[2022-12-26 02:02] LABS: Bilirubin Urine Neg (Negative); Blood Urine Neg (Negative); Glucose Urine UA Norm (Normal); Ketones Urine Negative (Negative); Leukocyte Esterase Urine Negative (Negative); Nitrate Urine Negative (Negative); Protein Urine Neg (Negative); Specific Gravity, Urine 1.005 (1.005-1.030); Urine Appearance Clear (CLEAR); Urine Color Colorless (Yellow); Urobilinogen Urine Neg (Negative); pH Urine 7 (5-7)
[2022-12-26 02:30] VITALS: PULSE 74; RESP 18; O2SAT 95
[2022-12-26 03:15] VITALS: BP 142/91; PULSE 76; RESP 16; O2SAT 95
== END 2022-12-26 02:14 | disposition home or self-care (01) ==
PROVIDERS: Emergency Provider Nurse Practitioner; PCP Family Medicine
DX: E46 Unspecified protein-calorie malnutrition (principal); Z68.1 Body mass index [BMI] 19.9 or less, adult; F17.210 Nicotine dependence, cigarettes, uncomplicated; E86.0 Dehydration; R11.0 Nausea
CPT/HCPCS: 71260; 74177; 80053; 81003; 83690; 83735; 83880; 84100; 84484; 85025; 93005; 96374; 99285; J2405; J7030; Q9967

== ENCOUNTER 2023-01-27 08:50 | Emergency (ER) | payer OTHER, MEDICAID, SELFPAY ==
[2023-01-27 09:00] VITALS: BP 139/100; PULSE 109; RESP 22; TEMP 36.2; O2SAT 98; BMI 15.5
--- NOTE | 2023-01-27 09:03 | XR_ITS ---
WS: [id number] XR chest 1V portable [id number] REASON FOR EXAM: dyspnea/cough FINDINGS: Normal thoracic aorta. Normal heart size. Calcified granulomatous disease bilaterally. The lungs appear hyperexpanded. No acute or subacute pulmonary parenchymal or pleural abnormality is identified. Bony thorax intact without significant abnormality. XR/XR chest 1V portable [id number] IMPRESSION: No acute abnormality.
--- NOTE | 2023-01-27 09:07 | ED_ITS ---
HPI - General Adult General: Chief complaint: General Medical Stated complaint: AMS Time Seen by Provider: 01/27/23 08:55 Source: patient Mode of arrival: EMS History of Present Illness: 57-year-old female with a history of colon cancer presents to the emergency room with severe anxiety. Patient is manic. It is actually difficult to get her to stop talking. EMS was contacted for a report of shortness of breath. Law enforcement was on the scene as well. Patient has a history colon cancer has received chemotherapy and is now getting radiation status post colectomy. She denies any dysuria or frequency she reports exquisi te abdominal pain even with light touch. Patient complains of being dehydrated. Onset (ago): unknown Location: abdomen Relieving factors: none Exacerbating factors: none Associated symptoms: Reports decreased appetite, dyspnea, malaise, nausea and weakness; Deny chest pain, confusion, cough, diaphoresis, fevers/chills, headache(s), rash, palpitations, seizures, short of breath, syncope, vomiting or other Review of Systems Const: Reports: malaise; Denies: fever(s), chills, fatigue or diaphoresis ENMT: Denies: throat pain, ear or mastoid pain, nasal discharge or nasal congestion Card: Denies: chest pain, palpitations or syncope Resp: Reports: dyspnea GI: Reports: abdominal pain and nausea; Denies: vomiting : Denies: flank pain, difficulty voiding, dysuria, urinary frequency or urinary urgency Skin/Breast: Denies: rash Neuro: Denies: headache(s) or confusion [facility] ED PFSH: Medical History (Updated 01/27/23 @ 09:49 by Mani Demarco DO) Colon cancer History of colon polyps Irritable bowel disease No pertinent past medical history Surgical History History of colon resection History of tubal ligation Social History Smoking and tobacco status: current every day smoker Physical Exam Const: GENERAL APPEARANCE: cooperative and frail appearing NUTRITIONAL APPEARANCE: cachectic ORIENTATION/CONSCIOUSNESS: Yes awake, Yes oriented to person, Yes oriented to place and Yes oriented to time HENMT: COMMON NORMALS: normocephalic, atraumatic and hearing grossly normal bilaterally HEAD & SCALP: normocephalic and atraumatic Resp: COMMON NORMALS: normal respiratory effort, No retractions, No use of accessory muscles and clear to auscultation bilaterally AUSCULTATION: clear to auscultation bilaterally Cardio: COMMON NORMALS: regular rate, regular rhythm and No murmurs present (Cardio) RATE: regular rate RHYTHM: regular rhythm GI: COMMON NORMALS: No hepatosplenomegaly present AUSCULTATION: Yes normoactive bowel sounds PALPATION: Yes Tenderness to palpation present (GI), No Guarding due to palpation present (GI) and Yes No hepatosplenomegaly present Extremity: COMMON NORMALS: normal to inspection, capillary refill normal, no clubbing, cyanosis or edema, no calf tenderness and no pedal edema Neuro: SENSORIUM/ORIENTATION: Yes oriented to person, Yes oriented to place and Yes oriented to time Skin: COMMON NORMALS: no rashes or lesions noted GENERAL SKIN EXAM: no rashes or lesions noted Course Vital Signs: Vital signs: Vital Signs Temperature 97.2 F L 01/27/23 09:00 Pulse Rate 109 H 01/27/23 09:00 Respiratory Rate 22 H 01/27/23 09:00 Blood Pressure 139/100 01/27/23 09:00 Pulse Oximetry 98 01/27/23 09:00 Oxygen Delivery Me thod 01/27/23 09:00 MDM - General Adult Medical Decision Making I was called to a STEMI alert while caring for the patient this particular patient decided to leave. When I first seen the patient clinically she appears to be under the influence of stimulant. Some of her blood work did return which was reviewed. She is mildly volume depleted which is consistent with her consistent with her physical exam. She is also hypokalemic. She left AMA despite the nurses trying to convince her otherwise. At the time of her found her low potassium and the lab work she was still in the lobby staff is approaching her to try to convince her to return in reregister so that we can address her hypokalemia for her. Staff did advise her that at any point if she wishes she can return would be happy to reevaluate and treat her. Medical Records I reviewed the patient's medical records. Lab Data I reviewed the patient's lab results. 01/27/23 09:15 01/27/23 09:15 Radiology Impressions Chest X-Ray 01/27/23 09:03 IMPRESSION: No acute abnormality. Laboratory Results WBC 8.3 10^3/uL (4.0-10.0) 01/27/23 09:15 RBC 4.83 10^6/uL (4.1-5.3) 01/27/23 09:15 Hgb 14.2 g/dL (11.5-15.3) 01/27/23 09:15 Hct 42.9 % (37.0-47.0) 01/27/23 09:15 MCV 88.8 fl (81-99) 01/27/23 09:15 MCH 29.4 pg (28.0-34.0) 01/27/23 09:15 MCHC 33.1 g/dL (30.0-36.0) 01/27/23 09:15 RDW 14.6 % (12.1-15.1) 01/27/23 09:15 Plt Count 309 10^3/cmm (130-400) 01/27/23 09:15 MPV 10.2 fL (7.4-10.4) 01/27/23 09:15 Neut % (Auto) 73.6 % 01/27/23 09:15 Lymph % (Auto) 17.3 % 01/27/23 09:15 [place] % (Auto) 7.6 % 01/27/23 09:15 Eos % (Auto) 0.5 % 01/27/23 09:15 Baso % (Auto) 0.6 % 01/27/23 09:15 Neut # (Auto) 6.08 10^3/uL (1.8-7.7) 01/27/23 09:15 Lymph # (Auto) 1.4 10^3/uL (0.8-4.8) 01/27/23 09:15 [place] # (Auto) 0.6 10^3/uL (0.2-0.9) 01/27/23 09:15 Eos # (Auto) 0.0 10^3/uL (0.0-0.8) 01/27/23 09:15 Baso # (Auto) 0.1 10^3/uL (0.0-0.1) 01/27/23 09:15 Nucleated RBC % (auto) 0 % 01/27/23 09:15 Nucleated RBCs # 0.0 /100WBC 01/27/23 09:15 Sodium 142 mmol/L (136-145) 01/27/23 09:15 Potassium 2.6 mmol/L (3.5-5.1) L* 01/27/23 09:15 Chloride 100 mmol/L (98-107) 01/27/23 09:15 Carbon Dioxide 27 mmol/L (22-29) 01/27/23 09:15 Anion Gap 17.6 (5-19) 01/27/23 09:15 BUN 27 mg/dL (6-20) H 01/27/23 09:15 Creatinine 1.1 mg/dL (0.5-0.9) H 01/27/23 09:15 GFR Calculation 51.2 mL/min (90-130) L 01/27/23 09:15 Glucose 138 mg/dL (65-115) H 01/27/23 09:15 Calculated Osmolality 301 mOsm/kg (285-295) H 01/27/23 09:15 Calcium 9.8 mg/dL (8.5-10.5) 01/27/23 09:15 Total Bilirubin 0.5 mg/dL (0.15-1.2) 01/27/23 09:15 AST 34 U/L (0-32) H 01/27/23 09:15 ALT 26 U/L (0-33) 01/27/23 09:15 Alkaline Phosphatase 72 U/L (35-105) 01/27/23 09:15 Total Protein 6.6 g/dL (6.6-8.7) 01/27/23 09:15 Albumin 4.5 g/dL (3.5-5.2) 01/27/23 09:15 Globulin 2.1 g/dL (1.3-4.6) 01/27/23 09:15 Discharge Plan Discharge Patient Disposition: Left Against Medical Advice Clinical Impression: Hypokalemia, Colon cancer Condition: Stable Prescriptions: No Action loperamide [Imodium A-D] 2 mg tablet 2 mg PO QID PRN (Reason: loose stool) Qty: 240 1RF dicyclomine 20 mg tablet 20 mg PO QID Qty: 120 0RF buspirone 5 mg Tablet 5 mg PO DAILY meloxicam 15 mg Tablet 15 mg PO DAILY Hold Instructions: Resume on 11/29/22. clonazepam 1 mg Tablet 1.5 mg PO TID prazosin 2 mg Capsule 2 mg PO BEDTIME venlafaxine 75 mg Tablet Extended Release 24hr 75 mg PO DAILY Referrals: Lauri Gaona DO [Primary Care Provider] - Coding Level of Care Code ED Oil Developer for Rema Lucas
[2023-01-27 09:23] LABS: Basophils # 0.1 10^3/uL (0.0-0.1); Basophils % 0.6 %; Eosinophils % 0.5 %; Hematocrit 42.9 % (37.0-47.0); Hemoglobin 14.2 g/dL (11.5-15.3); Lymphocytes # 1.4 10^3/uL (0.8-4.8); Lymphocytes % 17.3 %; Mean Corpuscular HGB Conc 33.1 g/dL (30.0-36.0); Mean Corpuscular Hemoglobin 29.4 pg (28.0-34.0); Mean Corpuscular Volume 88.8 fl (81-99); Mean Platelet Volume 10.2 fL (7.4-10.4); Monocytes # 0.6 10^3/uL (0.2-0.9); Monocytes % 7.6 %; Neutrophils # 6.08 10^3/uL (1.8-7.7); Neutrophils % 73.6 %; Nucleated Red Blood Cells % 0 %; Platelet Count 309 10^3/cmm (130-400); Red Blood Count 4.83 10^6/uL (4.1-5.3); Red Cell Distribution Width 14.6 % (12.1-15.1); White Blood Count 8.3 10^3/uL (4.0-10.0)
[2023-01-27 09:41] LABS: Alanine Aminotransferase 26 U/L (0-33); Albumin Level 4.5 g/dL (3.5-5.2); Alkaline Phosphatase 72 U/L (35-105); Anion Gap 17.6 (5-19); Aspartate Amino Transferase 34 U/L (0-32); Blood Urea Nitrogen 27 mg/dL (6-20); Calcium 9.8 mg/dL (8.5-10.5); Carbon Dioxide 27 mmol/L (22-29); Chloride 100 mmol/L (98-107); Globulin 2.1 g/dL (1.3-4.6); Glomerular Filtration Rate 51.2 mL/min (90-130); Glucose 138 mg/dL (65-115); Osmolality Calculated 301 mOsm/kg (285-295); Sodium 142 mmol/L (136-145); Total Bilirubin 0.5 mg/dL (0.15-1.2); Total Protein 6.6 g/dL (6.6-8.7)
[2023-01-27 09:44] LABS: Potassium 2.6 mmol/L (3.5-5.1)
== END 2023-01-27 09:32 | disposition left against medical advice (07) ==
PROVIDERS: Emergency Provider Family Medicine; PCP Family Medicine
DX: E87.6 Hypokalemia (principal); C18.9 Malignant neoplasm of colon, unspecified; F17.210 Nicotine dependence, cigarettes, uncomplicated
CPT/HCPCS: 36415; 71045; 80053; 85025; 99285

== ENCOUNTER 2023-01-28 20:45 | Inpatient (IN) | payer OTHER, MEDICAID, SELFPAY ==
[2023-01-28 20:47] VITALS: BP 163/92; PULSE 107; RESP 18; O2SAT 93; BMI 14.8
--- NOTE | 2023-01-28 20:49 | CTR_ITS ---
PROCEDURE INFORMATION: Exam: CT Head Without Contrast Exam date and time: 01/28/2023 9:03 PM Age: 57 years old Clinical indication: Altered mental status/memory loss; Confusion or disorientation; Patient HX: Arrival via ems/police for AMS. Patient acting confused with nonsensical statements. TECHNIQUE: Imaging protocol: Computed tomography of the head without contrast. Radiation optimization: All CT scans at this facility use at least one of these dose optimization techniques: automated exposure control; mA and/or kV adjustment per patient size (includes targeted exams where dose is matched to clinical indication); or iterative reconstruction. REPORTING DATA: Count of CT and Cardiac NM exams in prior 12 months: This patient has received 2 known CTs and 0 known cardiac nuclear medicine studies in the 12 months prior to the current study. COMPARISON: No relevant prior studies available. RADIATION DOSE METRICS: Total DLP (mGy-cm): 751.45 FINDINGS: Brain: The sulci are within normal limits. Mild hypodensities in supratentorial periventricular and subcortical white matter, consistent with microangiopathy. No intracranial hemorrhage. Cerebral ventricles: No ventriculomegaly. Paranasal sinuses: Visualized sinuses are unremarkable. No fluid levels. Mastoid air cells: Small left mastoid effusion. The right mastoid is clear. Bones/joints: Unremarkable. No acute fracture. Soft tissues: Unremarkable. Vasculature: No hyperdense artery. CT/CT head wo con* [id number] IMPRESSION: No acute intracranial abnormality.
--- NOTE | 2023-01-28 20:52 | W.ED.PSYCHS ---
HPI - Psych General: Chief Complaint: Altered Mental Status Stated Complaint: MHE Time Seen by Provider: 01/28/23 20:47 Source: patient and police Mode of arrival: other (police) Limitations: altered mental status History of Present Illness: 57-year-old female who was seen here yesterday when she was seen yesterday from previous noted. She was manic and extremely anxious she had left AMA patient went to the police station rip who is brought her up here stating that she is manic she is not making any sense here under my evaluation she does have flight of ideas very anxious and very paranoid she appears to have acute psychosis Review of Systems General: Reports: ROS unobtainable due to mental status PFSH ED PFSH: Medical History Colon cancer History of colon polyps Irritable bowel disease No pertinent past medical history Surgical History History of colon resection History of tubal ligation Social History Smoking and tobacco status: current every day smoker Physical Exam Const: COMMON NORMALS: negative for patient oriented x3 GENERAL APPEARANCE: anxious HENMT: COMMON NORMALS: normocephalic and atraumatic HEAD & SCALP: normocephalic and atraumatic Eye: COMMON NORMALS: Equal, round and reactive pupils present and EOMs intact bilaterally PUPIL: Yes Equal, round and reactive pupils present Neck/C-Spine: COMMON NORMALS: full ROM and supple Chest: COMMONS NORMALS: normal inspection of the chest and normal palpation of entire chest wall Resp: COMMON NORMALS: normal respiratory effort, No retractions, No use of accessory muscles and clear to auscultation bilaterally AUSCULTATION: clear to auscultation bilaterally Cardio: COMMON NORMALS: regular rate, regular rhythm and No murmurs present (Cardio) RATE: regular rate RHYTHM: regular rhythm GI: COMMON NORMALS: Normal to inspection, nondistended, normoactive bowel sounds present, Soft to palpation, non-tender and no masses PALPATION: Yes Soft to palpation Extremity: COMMON NORMALS: normal to inspection and full ROM Neuro: COMMON NORMALS: moves all extremities and no focal motor deficits; negative for patient oriented x3 Psych: COMMON NORMALS: cooperative; negative for mental status grossly normal and negative for Normal thought process present ATTITUDE: Yes paranoid and Yes bizarre SPEECH: Yes excessive and Yes rapid MOOD & AFFECT: Yes elevated mood THOUGHT PROCESS: abnormal Skin: COMMON NORMALS: no rashes or lesions noted and no wounds GENERAL SKIN EXAM: no rashes or lesions noted Course Vital Signs: Vital signs: Vital Signs Pulse Rate 107 H 01/28/23 20:47 Respiratory Rate 18 01/28/23 20:47 Blood Pressure 163/92 01/28/23 20:47 Pulse Oximetry 93 01/28/23 20:47 MDM - Psych Medical Decision Making Patient presents with acute psychosis patient is medically clear and her head CT is normal as well I did place her on a 96-hour hold I spoke to Dr. Box and will admit to the psychiatric rodriguez. Lab Data 01/28/23 21:22 01/28/23 21:[address] 01/28/23 20:49 IMPRESSION: No acute intracranial abnormality. Laboratory Results WBC 8.0 10^3/uL (4.0-10.0) 01/28/23 21: RBC 4.69 10^6/uL (4.1-5.3) 01/28/23 21: Hgb 14.0 g/dL (11.5-15.3) 01/28/23 21: Hct 42.3 % (37.0-47.0) 01/28/23 21: MCV 90.2 fl (81-99) 01/28/23 21: MCH 29.9 pg (28.0-34.0) 01/28/23 21: MCHC 33.1 g/dL (30.0-36.0) 01/28/23 21: RDW 14.9 % (12.1-15.1) 01/28/23 21: Plt Count 308 10^3/cmm (130-400) 01/28/23 21: MPV 11.1 fL (7.4-10.4) H 01/28/23 21:22 Neut % (Auto) 63.6 % 01/28/23 21: Lymph % (Auto) 26.0 % 01/28/23 21:22 [place] % (Auto) 9.0 % 01/28/23 21:22 Eos % (Auto) 0.7 % 01/28/23 21:22 Baso % (Auto) 0.5 % 01/28/23 21:22 Neut # (Auto) 5.10 10^3/uL (1.8-7.7) 01/28/23 21:22 Lymph # (Auto) 2.1 10^3/uL (0.8-4.8) 01/28/23 21:22 [place] # (Auto) 0.7 10^3/uL (0.2-0.9) 01/28/23 21:22 Eos # (Auto) 0.1 10^3/uL (0.0-0.8) 01/28/23 21:22 Baso # (Auto) 0.0 10^3/uL (0.0-0.1) 01/28/23 21:22 Nucleated RBC % (auto) 0 % 01/28/23 21: Nucleated RBCs # 0.0 /100WBC 01/28/23 21:22 Sodium 147 mmol/L (136-145) H 01/28/23 21:22 Potassium 3.5 mmol/L (3.5-5.1) 01/28/23 21:22 Chloride 103 mmol/L (98-107) 01/28/23 21:22 Carbon Dioxide 28 mmol/L (22-29) 01/28/23 21:22 Anion Gap 19.5 (5-19) H 01/28/23 21:22 BUN 25 mg/dL (6-20) H 01/28/23 21:22 Creatinine 1.2 mg/dL (0.5-0.9) H 01/28/23 21:22 GFR Calculation 46.3 mL/min (90-130) L 01/28/23 21:22 Glucose 95 mg/dL (65-115) 01/28/23 21: Calculated Osmolality 308 mOsm/kg (285-295) H 01/28/23 21:22 Calcium 10.1 mg/dL (8.5-10.5) 01/28/23 21:22 Magnesium 1.9 mg/dL (1.7-2.3) 01/28/23 21:22 Total Bilirubin 0.7 mg/dL (0.15-1.2) 01/28/23 21:22 AST 42 U/L (0-32) H 01/28/23 21:22 ALT 33 U/L (0-33) 01/28/23 21: Alkaline Phosphatase 75 U/L (35-105) 01/28/23 21: Total Protein 6.9 g/dL (6.6-8.7) 01/28/23 21: Albumin 4.6 g/dL (3.5-5.2) 01/28/23 21: Globulin 2.3 g/dL (1.3-4.6) 01/28/23 21: Urine Color Yellow (Yellow) 01/28/23 21:00 Urine Appearance Sl hazy (CLEAR) A 01/28/23 21:00 Urine pH 5 (5-7) 01/28/23 21:00 Ur Specific [place] 1.025 (1.005-1.030) 01/28/23 21:00 Urine Protein 1+ (Negative) H 01/28/23 21:00 Urine Glucose (UA) Norm (Normal) 01/28/23 21:00 Urine Ketones 1+ (Negative) H 01/28/23 21:00 Urine Blood Neg (Negative) 01/28/23 21:00 Urine Nitrate Negative (Negative) 01/28/23 21:00 Urine Bilirubin 1+ (Negative) H 01/28/23 21:00 Urine Urobilinogen 1 mg/dL (Negative) H 01/28/23 21:00 Ur Leukocyte Esterase Trace (Negative) H 01/28/23 21:00 Urine RBC 0-4 /hpf (0-2) H 01/28/23 21:00 Urine WBC 10-15 /hpf (0-5) H 01/28/23 21:00 Ur Squamous Epith Cells 40-55 /hpf (0-5) H 01/28/23 21:00 Amorphous Sediment Not Reportable 01/28/23 21:00 Urine Bacteria 2+ /hpf (NONE) H 01/28/23 21:00 Salicylates < 0.3 mg/dL (3-10) L 01/28/23 21: Urine Opiates Screen Negative ng/mL (Negative) 01/28/23 21:00 Acetaminophen < 5.0 ug/mL (10-30) L 01/28/23 21: Ur Barbiturates Screen Negative ng/mL (Negative) 01/28/23 21:00 Ur Phencyclidine Scrn Negative ng/mL (Negative) 01/28/23 21:00 Ur Amphetamines Screen Negative ng/mL (Negative) 01/28/23 21:00 U Benzodiazepines Scrn Negative ng/mL (Negative) 01/28/23 21:00 Urine Cocaine Screen Negative ng/mL (Negative) 01/28/23 21:00 U Marijuana (THC) Screen Negative ng/mL (Negative) 01/28/23 21:00 Ethyl Alcohol < 10 mg/dL (0-10) 01/28/23 21:22 Discharge Plan Discharge Patient Disposition: Admitted As Inpatient Clinical Impression: Acute psychosis Condition: Stable Prescriptions: No Action loperamide [Imodium A-D] 2 mg tablet 2 mg PO QID PRN (Reason: loose stool) Qty: 240 1RF dicyclomine 20 mg tablet 20 mg PO QID Qty: 120 0RF buspirone 5 mg Tablet 5 mg PO DAILY meloxicam 15 mg Tablet 15 mg PO DAILY Hold Instructions: Resume on 11/29/22. clonazepam 1 mg Tablet 1.5 mg PO TID prazosin 2 mg Capsule 2 mg PO BEDTIME venlafaxine 75 mg Tablet Extended Release 24hr 75 mg PO DAILY Referrals: Lauri Gaona DO [Primary Care Provider] - Coding Level of Care Code ED Assurance Engineer for Rema Lucas
[2023-01-28] MEDS: haloperidol inj 5 mg/mL INJ 1 mL IM (21:32)
[2023-01-28] MEDS: LORazepam 2 mg/mL INJ 1 mL IM (21:32)
[2023-01-28 21:43] LABS: Alanine Aminotransferase 33 U/L (0-33); Albumin Level 4.6 g/dL (3.5-5.2); Alkaline Phosphatase 75 U/L (35-105); Anion Gap 19.5 (5-19); Aspartate Amino Transferase 42 U/L (0-32); Blood Urea Nitrogen 25 mg/dL (6-20); Calcium 10.1 mg/dL (8.5-10.5); Carbon Dioxide 28 mmol/L (22-29); Chloride 103 mmol/L (98-107); Globulin 2.3 g/dL (1.3-4.6); Glomerular Filtration Rate 46.3 mL/min (90-130); Glucose 95 mg/dL (65-115); Magnesium 1.9 mg/dL (1.7-2.3); Osmolality Calculated 308 mOsm/kg (285-295); Potassium 3.5 mmol/L (3.5-5.1); Sodium 147 mmol/L (136-145); Total Bilirubin 0.7 mg/dL (0.15-1.2); Total Protein 6.9 g/dL (6.6-8.7)
[2023-01-28 21:52] LABS: Acetaminophen < 5.0 ug/mL (10-30); Alcohol Level < 10 mg/dL (0-10); Salicylate < 0.3 mg/dL (3-10)
[2023-01-28 22:20] LABS: Basophils % 0.5 %; Eosinophils # 0.1 10^3/uL (0.0-0.8); Eosinophils % 0.7 %; Hematocrit 42.3 % (37.0-47.0); Lymphocytes # 2.1 10^3/uL (0.8-4.8); Mean Corpuscular HGB Conc 33.1 g/dL (30.0-36.0); Mean Corpuscular Hemoglobin 29.9 pg (28.0-34.0); Mean Corpuscular Volume 90.2 fl (81-99); Mean Platelet Volume 11.1 fL (7.4-10.4); Monocytes # 0.7 10^3/uL (0.2-0.9); Neutrophils % 63.6 %; Nucleated Red Blood Cells % 0 %; Platelet Count 308 10^3/cmm (130-400); Red Blood Count 4.69 10^6/uL (4.1-5.3); Red Cell Distribution Width 14.9 % (12.1-15.1)
[2023-01-28 23:00] LABS: Add Urine Microscopic? YES; Bilirubin Urine 1+ (Negative); Blood Urine Neg (Negative); Glucose Urine UA Norm (Normal); Ketones Urine 1+ (Negative); Leukocyte Esterase Urine Trace (Negative); Nitrate Urine Negative (Negative); Protein Urine 1+ (Negative); Specific Gravity, Urine 1.025 (1.005-1.030); Urine Appearance SL Hazy (CLEAR); Urine Color Yellow (Yellow); Urobilinogen Urine 1 mg/dL (Negative); pH Urine 5 (5-7)
[2023-01-28 23:08] LABS: Bacteria Urine 2+ /hpf; RBC Urine 0-4 /hpf (0-2); Squamous Epithelial Cell Urine 40-55 /hpf (0-5)
[2023-01-28 23:22] LABS: Amphetamines Screen Urine Negative (Negative); Barbiturates Screen Urine Negative (Negative); Benzodiazepines Screen Urine Negative (Negative); Cocaine Screen Urine Negative (Negative); Opiate Screen Urine Negative (Negative); PCP Screen Urine Negative (Negative); THC Screen Urine Negative (Negative)
--- NOTE | 2023-01-29 | PC.NURSE ---
Patient 96 hour Hold rights read to patient and a copy of the same given to her. Blayne Box, bsa/aml compliance officer at bedside.
[2023-01-29 00:23] VITALS: BP 86/52; PULSE 80; TEMP 36.5; O2SAT 93
--- NOTE | 2023-01-29 00:30 | PC.NURSE ---
57 yr.old female admitted to room 153-2. Arrived to unit via stretcher accompanied by ED staff and security. Patient Transferred to NPU bed by staff. Patient sedated and would not wake up for assessment. Unable to change patient into NPU scrubs due to sedation. VS 97.7-76-16-82/53 SPO2@93%RA. Patient in involuntary and was read rights in ED by Shopfitter. No signs of distress noted. Continue with 15 minute checks by staff.
[2023-01-29 01:05] VITALS: BP 91/59; PULSE 80; RESP 18; O2SAT 92
[2023-01-29 01:35] VITALS: BP 114/71; PULSE 75; RESP 18; O2SAT 94
[2023-01-29 06:00] VITALS: BP 98/65; PULSE 86; RESP 15; TEMP 36.4; O2SAT 96
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
[2023-01-29] MEDS: blistex lip oint 7 gm Tube 1 APPLIC TOPICAL (20:12)
[2023-01-29 22:00] VITALS: BP 125/75; PULSE 101; RESP 17; TEMP 36; O2SAT 95
[2023-01-29] MEDS: hyDROXYzine 25 mg Capsule 50 MG PO (22:25)
[2023-01-29] MEDS: trazodone 50 mg Tablet PO (22:25)
[2023-01-29] MEDS: nicotine 2 mg Gum BUCCAL (22:25)
[2023-01-30 06:00] VITALS: BP 122/84; PULSE 113; RESP 18; TEMP 36.6; O2SAT 97
[2023-01-30] MEDS: blistex lip oint 7 gm Tube 1 APPLIC TOPICAL ×2 (08:26→15:50)
--- NOTE | 2023-01-30 08:59 | PC.NURSE ---
Patient denies SI/HI and AH/VH. She does endorse mild anxiety and depression. She states she believes she is making amends with my son's suicide during covid. Patient says she slept well. She began rambling and switching back and forth between the topics of getting her car, having Abhijit come pick her up, and asking about if there was anything she needed to know. Patient wanted this RN to last picker her dirty clothes and linens to take them to clothes bucket. However, I requested she take them instead. She then began scooting herself down the hallway on her bottom with the linens. This RN asked why she was doing this and she said, I just need some time. I feel fine. I just need to get out of here to take care of stuff.
[2023-01-30] MEDS: cefdinir 300 MG CAPSULE PO ×2 (09:05→18:32)
[2023-01-30] MEDS: nicotine 2 mg Gum BUCCAL ×2 (12:01→15:49)
--- NOTE | 2023-01-30 12:10 | PC.NURSE ---
Patient making multiple requests in a very small amount of time, all at separate times. Requesting telephone numbers off of her phone, asking us to look up phone numbers on the internet, requesting nicotine gum, requesting ibuprofen, and requesting more blankets. Each of these requests were separate in which she had left the nurses' station and came back shortly after. When this RN went to get her nicotine gum she had left the nurses' station when I came back with the gum. Patient then told another nurse she wanted it brought to her in her room. When the nurse told her she needed to come to the counter she stated, I don't get paid to be here. You guys get paid, you can bring it to me. This RN waited for the patient to come back, which she did shortly after and she asked, can I go outside and smoke? She was told we weren't able to let her smoke and she replied, I know that. That's why I asked for gum. Patient appears agitated and confused.
[2023-01-30 12:28] LABS: Bilirubin Urine 1+ (Negative); Blood Urine Neg (Negative); Glucose Urine UA Norm (Normal); Ketones Urine 1+ (Negative); Leukocyte Esterase Urine Negative (Negative); Nitrate Urine Negative (Negative); Protein Urine 1+ (Negative); Specific Gravity, Urine 1.025 (1.005-1.030); Urine Appearance SL Hazy (CLEAR); Urine Color Yellow (Yellow); Urobilinogen Urine 1 mg/dL (Negative); pH Urine 5 (5-7)
[2023-01-30 12:29] LABS: Bacteria Urine 1+ /hpf; Mucus Urine 1+ /hpf; Squamous Epithelial Cell Urine 15-25 /hpf (0-5); WBC Urine RARE /hpf (0-5)
[2023-01-30 12:30] LABS: Add Urine Culture? No
[2023-01-30 14:00] VITALS: RESP 17
[2023-01-30] MEDS: ibuprofen 600 mg Tablet PO (14:59)
--- NOTE | 2023-01-30 16:21 | PC.NURSE ---
Patient difficult to understand. Continues to mumble under her breath and was consistently interrupting patients while they were with their visitors. Patient also very demanding and asking for her phone several times even after she was told we couldn't at this time but would when we were available to do so. However, she continued to ask approximately every 10 minutes. Patient also walked into another patient's room and sat on her bed. When this RN explained to the patient that it was not her room and asked if she wouldn't mind coming back out to the hallway she stated, I'm trying to get in the sunlight. She's making her bed and the door is open. What's the problem? Patient very irritable at this time.
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
[2023-01-30 21:38] LABS: Specific Gravity, Urine 1.025 (1.005-1.030); Urine Appearance Clear (CLEAR); Urine Color Yellow (Yellow); pH Urine 5 (5-7)
[2023-01-30 21:39] LABS: Add Urine Culture? No; Bacteria Urine TRACE /hpf; Bilirubin Urine Neg (Negative); Blood Urine Neg (Negative); Glucose Urine UA Norm (Normal); Ketones Urine 1+ (Negative); Leukocyte Esterase Urine Trace (Negative); Mucus Urine 3+ /hpf; Nitrate Urine Negative (Negative); Protein Urine Trace (Negative); RBC Urine 0-4 /hpf (0-2); Squamous Epithelial Cell Urine 15-25 /hpf (0-5); Urobilinogen Urine Norm (Negative)
[2023-01-30 22:00] VITALS: BP 138/87; PULSE 118; RESP 18; TEMP 36.7; O2SAT 96
[2023-01-30] MEDS: OLANZapine 5 mg ODT PO (22:49)
[2023-01-30] MEDS: hyDROXYzine 25 mg Capsule 50 MG PO (22:49)
[2023-01-30] MEDS: nicotine 4 mg lozenge MUCOUS MEM (22:49)
[2023-01-30] MEDS: trazodone 50 mg Tablet PO (22:49)
[2023-01-31] MEDS: trazodone 50 mg Tablet PO ×2 (00:53→20:51)
[2023-01-31] MEDS: acetaminophen 325 mg Tablet 650 MG PO (04:28)
[2023-01-31 06:00] VITALS: RESP 16; BMI 15.0
[2023-01-31] MEDS: hyDROXYzine 25 mg Capsule 50 MG PO ×2 (08:46→14:24)
[2023-01-31] MEDS: cefdinir 300 MG CAPSULE PO ×2 (08:46→18:04)
[2023-01-31] MEDS: nicotine 4 mg lozenge MUCOUS MEM ×4 (08:46→20:52)
[2023-01-31 13:59] VITALS: BP 121/84; PULSE 111; RESP 18; TEMP 36.4; O2SAT 97
[2023-01-31] MEDS: saline nasal spray 44mL Btl 1 SPRAY NASAL (14:18)
[2023-01-31] MEDS: OLANZapine 5 mg ODT PO ×2 (14:24→18:04)
[2023-01-31] MEDS: ibuprofen 600 mg Tablet PO ×2 (14:24→20:52)
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
--- NOTE | 2023-01-31 17:41 | PC.NURSE ---
Pt is manic and up at the desk every 2 seconds, wanting, demanding something. Nurse has met MANY of her want's and needs this shift. Pt has flight of ideas and pressured speech. Pt stated that she was gonna leave with her friend and that she was just going to be smoking ciggs and drinking coffee then when the Black bitch is gone, he can drop me back off to the unit.
[2023-01-31 19:47] VITALS: BP 136/86; PULSE 105; RESP 17; TEMP 36.6; O2SAT 99
[2023-01-31] MEDS: CLONazepam 1 mg Tablet 1.5 MG PO (20:49)
[2023-01-31] MEDS: OLANZapine 5 mg ODT 7.5 MG PO (20:50)
[2023-02-01 06:00] VITALS: BP 94/71; PULSE 94; RESP 15; O2SAT 96
[2023-02-01] MEDS: ibuprofen 600 mg Tablet PO ×3 (08:14→20:11)
[2023-02-01] MEDS: sennosides-docusate Tablet 1 TAB PO ×2 (08:15→17:23)
[2023-02-01] MEDS: meloxicam 7.5 mg tablet 15 MG PO (08:15)
[2023-02-01] MEDS: hyDROXYzine 25 mg Capsule 50 MG PO (08:15)
[2023-02-01] MEDS: cefdinir 300 MG CAPSULE PO ×2 (08:16→17:23)
[2023-02-01] MEDS: neomycin-poly-bacitracin oint 28 gm 1 APPLIC TOPICAL ×2 (08:16→17:52)
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
[2023-02-01 14:00] VITALS: RESP 15
[2023-02-01] MEDS: OLANZapine 5 mg ODT PO (17:24)
--- NOTE | 2023-02-01 17:38 | PC.NURSE ---
Patient reported anxiety and requested medication for this. Patient was given Zyprexa 5mg ODT at 1724. Patient was also educated on nonpharmacological ways to manage anxiety. No adverse reactions noted.
[2023-02-01 19:42] VITALS: BP 97/57; PULSE 81; RESP 18; TEMP 36.3; O2SAT 98
[2023-02-01] MEDS: CLONazepam 1 mg Tablet PO (20:11)
[2023-02-01] MEDS: OLANZapine 5 mg ODT 7.5 MG PO (20:12)
[2023-02-01] MEDS: benzocaine 20% 7 gm 1 APPLIC MUCOUS MEM (22:02)
[2023-02-01] MEDS: trazodone 50 mg Tablet PO ×2 (22:02→23:08)
[2023-02-01] MEDS: blistex lip oint 7 gm Tube 1 APPLIC TOPICAL (22:02)
--- NOTE | 2023-02-02 01:01 | PC.NURSE ---
pt believed it was dayshift and was asking for coffee. continues to be demanding, intrusive with staff and patients, trazodone and ibuprofen prn given as ordered. pt will pouring snacks on bed and stating bed is dirty, requesting clean linens. pt encouraged to finish snack and rest, trazodone prn was given. She has continued to be demanding and intrusive. additional trazodone per md orders given. pt reported she had fallen to other nurse, was assess by nurse, she was assessed by charged nurse and pt denied falling, stated she went down to her knees and elbows and sat down, continued to report she did not fall, conversation witnessed by ROAD TEST EXAMINER. Security asked to review cameras as patient continues to be unrealiable. Per Director Of Employee Development and Security- pt did not fall, she sat on floor. She has been encouraged to lay down on her bed and rest, staff rounds every 15 minutes and she can voice needs at this time. patient verbalized understanding.
[2023-02-02 06:00] VITALS: BP 117/82; PULSE 89; RESP 16; TEMP 36.4; O2SAT 95
[2023-02-02] MEDS: cefdinir 300 MG CAPSULE PO (08:20)
[2023-02-02] MEDS: meloxicam 7.5 mg tablet 15 MG PO (08:20)
[2023-02-02] MEDS: haloperidol 5 mg Tablet PO (08:20)
[2023-02-02] MEDS: sennosides-docusate Tablet 1 TAB PO ×2 (08:20→17:55)
[2023-02-02] MEDS: neomycin-poly-bacitracin oint 28 gm 1 APPLIC TOPICAL (08:22)
[2023-02-02 14:00] VITALS: BP 149/87; PULSE 93; RESP 18; TEMP 36.3; O2SAT 98
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
[2023-02-02] MEDS: OLANZapine 5 mg ODT PO (17:55)
[2023-02-02 20:04] VITALS: BP 117/83; PULSE 76; RESP 18; O2SAT 98
[2023-02-02] MEDS: CLONazepam 1 mg Tablet PO (21:20)
[2023-02-02] MEDS: OLANZapine 10 mg ODT PO (21:20)
[2023-02-02] MEDS: trazodone 50 mg Tablet PO ×2 (21:20→22:27)
[2023-02-02] MEDS: benzocaine 20% 7 gm 1 APPLIC MUCOUS MEM (21:22)
[2023-02-02] MEDS: blistex lip oint 7 gm Tube 1 APPLIC TOPICAL (21:23)
[2023-02-03] MEDS: haloperidol 5 mg Tablet PO ×2 (01:56→22:26)
[2023-02-03] MEDS: blistex lip oint 7 gm Tube 1 APPLIC TOPICAL ×3 (01:56→12:18)
[2023-02-03] MEDS: acetaminophen 325 mg Tablet 650 MG PO ×2 (02:12→18:20)
--- NOTE | 2023-02-03 04:45 | PC.NURSE ---
pt has been very intrusive, at nurses station multiple times, demanding, Trazodone given twice per MD orders. at 2200 while RN making rounds, pt had all the crayons spread out on the table in dayroom, asked nurse to help pick them up. Nurse replied she is able to clean up after herself, pt then asked another patient in dayroom to help her, she initially requested Tylenol for colon pain then refused stated she couldn't take it because she had Meningitis and will tell the doctor to put it on her allergy list, later in the evening she asked for it stating I will just have to deal with it pt constantly asking for Blistex and Orajel and pt notified when available to give. She was given Haldol at 0156 as she was getting irritable and pacing the halls. pt was asked multiple times to rest as other patients are sleeping, She would at times confront patients when at the nurses station and demanding to be helped first. When nurse addressed with patient the frequency of visits to the nurses station, the patient stated I've only been up here once, I must have been sleep walking nurse replied to pt that she hasn't slept and encouraged her to try to lay down and rest.
[2023-02-03 06:00] VITALS: BP 119/85; PULSE 87; RESP 16; TEMP 36.3; O2SAT 97
[2023-02-03] MEDS: meloxicam 7.5 mg tablet 15 MG PO (09:09)
[2023-02-03] MEDS: cefdinir 300 MG CAPSULE PO ×2 (09:09→18:21)
[2023-02-03] MEDS: sennosides-docusate Tablet 1 TAB PO ×2 (09:10→18:20)
[2023-02-03] MEDS: nicotine 4 mg lozenge MUCOUS MEM ×2 (09:17→12:12)
[2023-02-03] MEDS: hyDROXYzine 25 mg Capsule 50 MG PO (12:12)
[2023-02-03] MEDS: neomycin-poly-bacitracin oint 28 gm 1 APPLIC TOPICAL ×2 (12:17→18:23)
[2023-02-03 13:19] VITALS: BP 127/82; PULSE 118; RESP 18; TEMP 36.3; O2SAT 98
[2023-02-03] MEDS: nicotine 2 mg Gum BUCCAL ×2 (14:30→18:28)
[2023-02-03] MEDS: OLANZapine 5 mg ODT PO ×2 (14:31→18:20)
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
--- NOTE | 2023-02-03 18:46 | PC.NURSE ---
Vivianwes reported pt attempted to move her bed on her own. Pt was redirected and informed she was not to attempt to do this again due to safety concerns. Pt verbablized her understanding.
[2023-02-03] MEDS: CLONazepam 1 mg Tablet PO (20:45)
[2023-02-03] MEDS: OLANZapine 5 mg ODT 12.5 MG PO (20:49)
[2023-02-03 21:26] VITALS: BP 114/81; PULSE 102; RESP 17; TEMP 36.6; O2SAT 97
--- NOTE | 2023-02-03 22:25 | PC.NURSE ---
Patient requesting medication to promote sleep. PRN trazodone given. Encouraged patient to return to room and try and relax in bed.
--- NOTE | 2023-02-03 22:25 | PC.NURSE ---
Trazodone not effective. Patient up pacing hallways and coming to nurse's station every few minutes requesting different items. Patient continues to be intrusive and demanding. Attempted to redirect patient to different activities including returning to her room to relax. Patient will go to room for 2 minutes and then return to nurse's station asking for things. PRN Vistaril offered to patient and taken. Discussed coping skills and activities she could do in her room. Frequent redirection needed.
[2023-02-03] MEDS: trazodone 50 mg Tablet PO (22:26)
[2023-02-04] MEDS: hyDROXYzine 25 mg Capsule 50 MG PO ×3 (02:19→19:06)
--- NOTE | 2023-02-04 04:53 | PC.NURSE ---
Patient is currently resting in bed with eyes closed at this time. No signs of distress present.
[2023-02-04] MEDS: sennosides-docusate Tablet 1 TAB PO ×2 (09:09→17:18)
[2023-02-04] MEDS: meloxicam 7.5 mg tablet 15 MG PO (09:10)
[2023-02-04] MEDS: nicotine 2 mg Gum BUCCAL ×3 (09:16→19:00)
[2023-02-04 13:45] VITALS: BP 111/79; PULSE 98; RESP 20; TEMP 36.4; O2SAT 97
[2023-02-04] MEDS: acetaminophen 325 mg Tablet 650 MG PO (14:09)
--- NOTE | 2023-02-04 15:13 | PC.NURSE ---
off the unit for [address]
[2023-02-04] MEDS: neomycin-poly-bacitracin oint 28 gm 1 APPLIC TOPICAL (18:43)
[2023-02-04] MEDS: cefdinir 300 MG CAPSULE PO (18:43)
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
--- NOTE | 2023-02-04 19:05 | PC.NURSE ---
Patient up at nurse's station agitated about 21 day hold. Demanded to see the DR. Explained to patient that the DR was not available at this time. Patient demanded loudly that the DR be called about the 21 day hold. Stated the lower school music teacher told her she could be released immediately. Explained to patient that the lower school music teacher did order her to stay up to 21 days for treatment. Patient argumentative and talking over staff. Unable to redirect. Zyprexa given at that time for behavior.
[2023-02-04] MEDS: OLANZapine 5 mg ODT PO (19:07)
[2023-02-04 21:29] VITALS: BP 125/86; PULSE 106; RESP 17; TEMP 36.6; O2SAT 98
--- NOTE | 2023-02-04 21:45 | PC.NURSE ---
Patient has continued to be demanding, intrusive and irritable. Patient has spent most of shift at nurse's station ranting about various subjects. Several distractions were offered to patient but she continued to be irrational and delusional. When patient does not get what she demands she becomes loud and at times sits on the floor in the hallway. Patient needs frequent redirection about boundaries and appropriate behavior. Patient given haldol po for continued behaviors. Patient requested prn for sleep as well. Trazodone given.
[2023-02-04] MEDS: OLANZapine 5 mg ODT 15 MG PO (21:48)
[2023-02-04] MEDS: haloperidol 5 mg Tablet PO (21:48)
[2023-02-04] MEDS: nicotine 4 mg lozenge MUCOUS MEM (21:48)
[2023-02-04] MEDS: trazodone 50 mg Tablet PO (21:48)
[2023-02-04] MEDS: CLONazepam 1 mg Tablet PO (21:48)
--- NOTE | 2023-02-05 05:14 | PC.NURSE ---
Patient has been resting quietly in bed since approximately 2300. No signs of distress noted. Continues with 15 minute safety check by staff.
[2023-02-05] MEDS: hyDROXYzine 25 mg Capsule 50 MG PO (06:37)
[2023-02-05] MEDS: nicotine 2 mg Gum BUCCAL ×2 (06:37→11:18)
--- NOTE | 2023-02-05 06:39 | PC.NURSE ---
Patient requesting medication for anxiety with a rating of 7/10. Vistaril given. Patient continues to be intrusive and demanding. Redirected as needed.
[2023-02-05] MEDS: haloperidol 5 mg Tablet PO ×3 (08:00→21:29)
[2023-02-05] MEDS: sennosides-docusate Tablet 1 TAB PO ×2 (08:00→17:48)
[2023-02-05] MEDS: cefdinir 300 MG CAPSULE PO ×2 (08:00→17:48)
[2023-02-05] MEDS: benzocaine 20% 7 gm 1 APPLIC MUCOUS MEM ×3 (08:00→18:46)
[2023-02-05] MEDS: meloxicam 7.5 mg tablet 15 MG PO (08:00)
[2023-02-05] MEDS: blistex lip oint 7 gm Tube 1 APPLIC TOPICAL ×3 (08:01→18:46)
[2023-02-05] MEDS: OLANZapine 5 mg ODT PO (11:18)
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
[2023-02-05 14:00] VITALS: BP 124/78; PULSE 96; RESP 18; TEMP 36.5; O2SAT 97
--- NOTE | 2023-02-05 15:25 | PC.NURSE ---
Two pills found in a medication cup behind staff computer screen. Staff reported the pt had returned the pills. One is pink the other is white. Pills discarded; appeared to be Tylenol. MAR adjusted. Pt came to desk asking for more orajel; staff declined as pt just had some. Requesting blistex. Also requesting medication for anxiety; tearful wanting to go to the ER. Pt will be medicated for anxiety and encouraged to go lay down on her bed. Pt chose to walk away from staff after staff declined to provide her multiple requests.
[2023-02-05] MEDS: diphenhydrAMINE 50 mg Capsule PO ×2 (15:35→21:29)
[2023-02-05] MEDS: LORazepam 2 mg Tablet PO ×2 (15:35→21:30)
--- NOTE | 2023-02-05 17:02 | PC.NURSE ---
Pt slept for approximately one hour after receiving haldol, benadryl, and ativan. Then back up with multiple requests, being intrusive, not taking redirection. Pt directed to step away from the desk. She finally complied.
[2023-02-05] MEDS: acetaminophen 325 mg Tablet 650 MG PO (18:40)
[2023-02-05 19:50] VITALS: BP 127/81; PULSE 94; RESP 16; TEMP 36.4; O2SAT 98
[2023-02-05] MEDS: OLANZapine 5 mg ODT 15 MG PO (21:29)
[2023-02-05] MEDS: CLONazepam 1 mg Tablet PO (21:29)
[2023-02-05] MEDS: trazodone 50 mg Tablet PO (21:30)
[2023-02-05] MEDS: nicotine 4 mg lozenge MUCOUS MEM (21:30)
[2023-02-06 06:00] VITALS: BP 136/86; PULSE 87; RESP 16; TEMP 36.3; O2SAT 100
[2023-02-06] MEDS: nicotine 2 mg Gum BUCCAL ×3 (06:41→21:10)
[2023-02-06] MEDS: hyDROXYzine 25 mg Capsule 50 MG PO ×2 (07:31→21:09)
[2023-02-06] MEDS: cefdinir 300 MG CAPSULE PO ×2 (08:42→18:05)
[2023-02-06] MEDS: meloxicam 7.5 mg tablet 15 MG PO (08:43)
[2023-02-06] MEDS: sennosides-docusate Tablet 1 TAB PO ×2 (08:43→18:05)
[2023-02-06] MEDS: haloperidol 5 mg Tablet PO (11:26)
[2023-02-06] MEDS: diphenhydrAMINE 50 mg Capsule PO (11:26)
[2023-02-06] MEDS: LORazepam 2 mg Tablet PO ×2 (11:26→21:09)
--- NOTE | 2023-02-06 11:30 | PC.NURSE ---
PRN Back End Web Developer Patient continues to be intrusive with all patients and nurses. Patient becoming increasingly intrusive, asking for phone numbers every 5-10 minutes and interrupting patients when they are trying to talk to the nurses. Other patients becoming verbally angry with her for her actions and intrusiveness. This RN explained to patient that everyone has a personal bubble and that she should respect this. We talked about how to keep busy to avoid intruding on others' time to themselves. She verbally agreed to not approach or talk to other patients unless they talked to her first. However, just a few minutes later she was beginning to agitate another patient. Administered diphenhydramine 50mg PO, haldol 5mg PO, and ativan 2mg PO. Patient then became frantic and stated benadryl kept her up all of the time and that she needed to make herself throw up. This RN advised the patient not to do this and discussed how the patient had taken this medication just last night and that hourly shift had reported she slept well to which she did not dispute. Patient then ran to the restroom in the hallway and when she returned to the nurses' desk she, I threw up, that's what it does to my body. Don't I look sick now? She did not flush the toilet, where she claimed she had vomited, in the restroom and upon inspection appeared that she had not thrown up. Patient then argued that she knew benadryl was used for meth and that it was only sold behind the counter at the pharmacy. This RN reassured her that this was not the case and that she was most likely referring to kimberly and she replied, ya, jerzymind that's what it is!
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
[2023-02-06 14:00] VITALS: BP 127/85; PULSE 86; RESP 16; TEMP 36.4; O2SAT 99
[2023-02-06] MEDS: acetaminophen 325 mg Tablet 650 MG PO (14:12)
[2023-02-06] MEDS: nicotine 4 mg lozenge MUCOUS MEM (16:24)
[2023-02-06 20:01] VITALS: BP 120/79; PULSE 95; RESP 18; TEMP 36.5; O2SAT 98
[2023-02-06] MEDS: OLANZapine 5 mg ODT 15 MG PO (21:06)
[2023-02-06] MEDS: trazodone 50 mg Tablet PO (21:10)
[2023-02-06] MEDS: CLONazepam 1 mg Tablet PO (21:10)
[2023-02-07] MEDS: trazodone 50 mg Tablet PO ×3 (02:22→23:58)
[2023-02-07] MEDS: LORazepam 2 mg Tablet PO ×2 (02:22→21:19)
[2023-02-07] MEDS: meloxicam 7.5 mg tablet 15 MG PO (08:49)
[2023-02-07] MEDS: cefdinir 300 MG CAPSULE PO ×2 (08:49→18:14)
[2023-02-07] MEDS: acetaminophen 325 mg Tablet 650 MG PO (08:50)
[2023-02-07] MEDS: sennosides-docusate Tablet 1 TAB PO ×2 (08:50→18:14)
[2023-02-07] MEDS: benzocaine 20% 7 gm 1 APPLIC MUCOUS MEM (09:16)
[2023-02-07] MEDS: neomycin-poly-bacitracin oint 28 gm 1 APPLIC TOPICAL (09:19)
[2023-02-07 14:00] VITALS: BP 124/80; PULSE 95; RESP 18; TEMP 36.3; O2SAT 97
[2023-02-07] MEDS: OLANZapine 5 mg ODT PO (15:09)
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
[2023-02-07] MEDS: nicotine 4 mg lozenge MUCOUS MEM (18:52)
[2023-02-07] MEDS: OLANZapine 5 mg ODT 15 MG PO (20:13)
[2023-02-07] MEDS: hyDROXYzine 25 mg Capsule 50 MG PO (20:14)
[2023-02-07] MEDS: haloperidol 5 mg Tablet PO (20:14)
[2023-02-07] MEDS: CLONazepam 1 mg Tablet PO (20:14)
[2023-02-07] MEDS: nicotine 2 mg Gum BUCCAL (21:20)
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
[2023-02-07 21:48] VITALS: BP 134/85; PULSE 87; RESP 16; TEMP 36.6; O2SAT 98
[2023-02-07] MEDS: ibuprofen 600 mg Tablet PO (23:58)
[2023-02-07] MEDS: ziprasidone hcl 40 mg Capsule PO (23:59)
[2023-02-08 06:00] VITALS: RESP 16
[2023-02-08] MEDS: cefdinir 300 MG CAPSULE PO ×2 (08:28→17:46)
[2023-02-08] MEDS: sennosides-docusate Tablet 1 TAB PO ×2 (08:29→17:46)
[2023-02-08] MEDS: meloxicam 7.5 mg tablet 15 MG PO (08:29)
[2023-02-08] MEDS: ibuprofen 600 mg Tablet PO ×2 (08:30→15:51)
[2023-02-08] MEDS: nicotine 2 mg Gum BUCCAL ×3 (08:40→21:48)
[2023-02-08] MEDS: hyDROXYzine 25 mg Capsule 50 MG PO ×3 (09:35→19:52)
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
[2023-02-08] MEDS: magnesium hydroxide 30 mL UDC PO (11:18)
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
[2023-02-08 14:00] VITALS: BP 126/76; PULSE 89; RESP 17; O2SAT 97
[2023-02-08] MEDS: neomycin-poly-bacitracin oint 28 gm 1 APPLIC TOPICAL (17:46)
[2023-02-08] MEDS: CLONazepam 1 mg Tablet PO (19:52)
[2023-02-08] MEDS: OLANZapine 5 mg ODT 15 MG PO (19:52)
[2023-02-08] MEDS: trazodone 50 mg Tablet PO ×2 (19:52→22:49)
[2023-02-08 20:26] VITALS: BP 131/81; PULSE 107; RESP 18; TEMP 36.4; O2SAT 98
[2023-02-08] MEDS: OLANZapine 5 mg ODT PO (22:50)
[2023-02-09 06:00] VITALS: BP 129/82; PULSE 89; RESP 19; O2SAT 97
[2023-02-09] MEDS: sennosides-docusate Tablet 1 TAB PO ×2 (09:11→17:15)
[2023-02-09] MEDS: nicotine 2 mg Gum BUCCAL ×2 (09:11→16:57)
[2023-02-09] MEDS: hyDROXYzine 25 mg Capsule 50 MG PO ×2 (09:11→17:15)
[2023-02-09] MEDS: meloxicam 7.5 mg tablet 15 MG PO (09:11)
[2023-02-09] MEDS: cefdinir 300 MG CAPSULE PO (09:12)
[2023-02-09] MEDS: neomycin-poly-bacitracin oint 28 gm 1 APPLIC TOPICAL (09:12)
[2023-02-09] MEDS: acetaminophen 325 mg Tablet 650 MG PO (10:44)
[2023-02-09] MEDS: OLANZapine 5 mg ODT PO (10:44)
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
[2023-02-09 14:00] VITALS: RESP 18
--- NOTE | 2023-02-09 14:22 | PC.NURSE ---
Pt refused to have vitals taken at this time.
[2023-02-09] MEDS: ziprasidone hcl 40 mg Capsule PO (16:53)
[2023-02-09] MEDS: ibuprofen 600 mg Tablet PO ×2 (17:15→21:10)
[2023-02-09] MEDS: magnesium hydroxide 30 mL UDC PO (19:11)
[2023-02-09 20:41] VITALS: RESP 16
[2023-02-09] MEDS: CLONazepam 1 mg Tablet PO (21:11)
[2023-02-09] MEDS: trazodone 50 mg Tablet PO (21:11)
[2023-02-09] MEDS: OLANZapine 5 mg ODT 15 MG PO (21:11)
[2023-02-09] MEDS: LORazepam 2 mg Tablet PO (21:11)
[2023-02-09] MEDS: haloperidol 5 mg Tablet PO (21:11)
[2023-02-09] MEDS: diphenhydrAMINE 50 mg Capsule PO (21:11)
[2023-02-10] MEDS: meloxicam 7.5 mg tablet 15 MG PO (08:06)
[2023-02-10] MEDS: sennosides-docusate Tablet 1 TAB PO ×2 (08:06→17:15)
[2023-02-10] MEDS: hyDROXYzine 25 mg Capsule 50 MG PO (08:07)
[2023-02-10] MEDS: nicotine 2 mg Gum BUCCAL (09:30)
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
[2023-02-10] MEDS: ibuprofen 600 mg Tablet PO (12:00)
[2023-02-10] MEDS: OLANZapine 5 mg ODT PO (12:03)
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
[2023-02-10 14:00] VITALS: BP 136/84; PULSE 107; RESP 18; TEMP 36.4; O2SAT 97
[2023-02-10] MEDS: magnesium hydroxide 30 mL UDC PO (17:15)
[2023-02-10] MEDS: neomycin-poly-bacitracin oint 28 gm 1 APPLIC TOPICAL (17:16)
[2023-02-10] MEDS: trazodone 50 mg Tablet PO (20:54)
[2023-02-10] MEDS: CLONazepam 1 mg Tablet PO (20:54)
[2023-02-10] MEDS: OLANZapine 5 mg ODT 15 MG PO (20:54)
[2023-02-10 22:00] VITALS: BP 145/80; PULSE 80; RESP 15; O2SAT 98
[2023-02-11] MEDS: ibuprofen 600 mg Tablet PO ×3 (00:24→17:54)
[2023-02-11] MEDS: trazodone 50 mg Tablet PO ×2 (00:25→21:12)
[2023-02-11] MEDS: benzocaine 20% 7 gm 1 APPLIC MUCOUS MEM (00:35)
[2023-02-11 06:00] VITALS: RESP 16
--- NOTE | 2023-02-11 06:19 | PC.NURSE ---
at bedtime pt given trazodone for sleep. Pt continues to be intrusive, walking in patient rooms, pt was standing in doorway of patient room while RN was assessing another peer. pt stated I need to tell you something RN explained to pt that unless it was an emergency/urgent, she would need to wait until I am out of a patient room. Privacy reasons. Patient continued to interupt while trying to have conversations with other peers. Ibuprofen was given at 0030, and trazodone. pt has slept remainder of night.
[2023-02-11] MEDS: hyDROXYzine 25 mg Capsule 50 MG PO ×2 (08:03→14:09)
[2023-02-11] MEDS: meloxicam 7.5 mg tablet 15 MG PO (08:03)
[2023-02-11] MEDS: sennosides-docusate Tablet 1 TAB PO ×2 (08:04→17:51)
[2023-02-11] MEDS: neomycin-poly-bacitracin oint 28 gm 1 APPLIC TOPICAL ×2 (08:04→17:51)
[2023-02-11] MEDS: nicotine 2 mg Gum BUCCAL ×2 (08:53→21:12)
[2023-02-11] MEDS: phenyleph-mineral oil-petrolat Oint 28 gm 1 APPLIC TOPICAL (09:30)
[2023-02-11] MEDS: OLANZapine 5 mg ODT PO ×2 (10:35→14:10)
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
[2023-02-11 14:00] VITALS: BP 131/76; PULSE 83; RESP 20; TEMP 36.4; O2SAT 96
[2023-02-11] MEDS: magnesium hydroxide 30 mL UDC PO (14:06)
[2023-02-11] MEDS: acetaminophen 325 mg Tablet 650 MG PO (14:09)
[2023-02-11] MEDS: haloperidol 5 mg Tablet PO ×2 (17:54→21:32)
[2023-02-11] MEDS: CLONazepam 1 mg Tablet PO (20:54)
[2023-02-11] MEDS: OLANZapine 5 mg ODT 15 MG PO (20:54)
[2023-02-11 22:00] VITALS: BP 126/85; PULSE 79; RESP 18; TEMP 36.7; O2SAT 97
[2023-02-12] MEDS: acetaminophen 325 mg Tablet 650 MG PO ×2 (02:08→14:35)
[2023-02-12] MEDS: nicotine 2 mg Gum BUCCAL ×6 (02:09→20:30)
[2023-02-12] MEDS: ibuprofen 600 mg Tablet PO ×3 (05:54→20:29)
[2023-02-12] MEDS: hyDROXYzine 25 mg Capsule 50 MG PO ×2 (05:55→12:41)
[2023-02-12 06:00] VITALS: BP 127/87; PULSE 100; RESP 16; TEMP 36.4; O2SAT 95
[2023-02-12] MEDS: phenyleph-mineral oil-petrolat Oint 28 gm 1 APPLIC TOPICAL (06:17)
[2023-02-12] MEDS: sennosides-docusate Tablet 1 TAB PO (08:32)
[2023-02-12] MEDS: meloxicam 7.5 mg tablet 15 MG PO (08:32)
[2023-02-12] MEDS: ziprasidone hcl 40 mg Capsule PO (08:33)
[2023-02-12] MEDS: nicotine 4 mg lozenge MUCOUS MEM (08:33)
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
[2023-02-12 14:00] VITALS: RESP 20
[2023-02-12] MEDS: OLANZapine 5 mg ODT PO (14:35)
[2023-02-12] MEDS: OLANZapine 5 mg ODT 15 MG PO (20:27)
[2023-02-12] MEDS: CLONazepam 1 mg Tablet PO (20:28)
[2023-02-12] MEDS: lithium carbonate 300 mg Capsule PO (20:28)
[2023-02-12] MEDS: trazodone 50 mg Tablet PO (20:29)
[2023-02-12] MEDS: haloperidol 5 mg Tablet PO (20:30)
[2023-02-12 22:00] VITALS: RESP 18
[2023-02-13] MEDS: nicotine 2 mg Gum BUCCAL ×7 (02:10→20:41)
[2023-02-13] MEDS: ibuprofen 600 mg Tablet PO ×3 (02:16→21:23)
[2023-02-13] MEDS: ziprasidone hcl 40 mg Capsule PO (02:16)
[2023-02-13 06:00] VITALS: BP 136/87; PULSE 94; RESP 18; TEMP 36.4; O2SAT 98
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
[2023-02-13] MEDS: neomycin-poly-bacitracin oint 28 gm 1 APPLIC TOPICAL (09:00)
[2023-02-13] MEDS: sennosides-docusate Tablet 1 TAB PO ×2 (09:00→18:03)
[2023-02-13] MEDS: meloxicam 7.5 mg tablet 15 MG PO (09:00)
[2023-02-13] MEDS: lithium carbonate 300 mg Capsule PO ×2 (09:00→18:03)
[2023-02-13] MEDS: CLONazepam 1 mg Tablet PO ×2 (11:15→20:40)
[2023-02-13 14:00] VITALS: BP 102/71; PULSE 92; RESP 18; TEMP 36.2; O2SAT 91
[2023-02-13] MEDS: blistex lip oint 7 gm Tube 1 APPLIC TOPICAL (15:08)
[2023-02-13] MEDS: benzocaine 20% 7 gm 1 APPLIC MUCOUS MEM (15:08)
[2023-02-13 19:50] VITALS: BP 116/78; PULSE 99; RESP 18; TEMP 36.8; O2SAT 96
[2023-02-13] MEDS: haloperidol 5 mg Tablet PO (20:40)
[2023-02-13] MEDS: OLANZapine 5 mg ODT 15 MG PO (20:40)
[2023-02-13 22:00] VITALS: BP 116/78; PULSE 99; RESP 16; TEMP 36.8
[2023-02-14 06:00] VITALS: BP 121/77; PULSE 72; RESP 18; TEMP 36.4; O2SAT 96
[2023-02-14] MEDS: OLANZapine 5 mg ODT PO ×2 (08:53→18:33)
[2023-02-14] MEDS: ibuprofen 600 mg Tablet PO ×2 (08:54→18:32)
[2023-02-14] MEDS: lithium carbonate 300 mg Capsule PO ×2 (08:54→18:09)
[2023-02-14] MEDS: meloxicam 7.5 mg tablet 15 MG PO (08:54)
[2023-02-14] MEDS: neomycin-poly-bacitracin oint 28 gm 1 APPLIC TOPICAL ×2 (08:54→18:09)
[2023-02-14] MEDS: sennosides-docusate Tablet 1 TAB PO ×2 (08:54→18:09)
[2023-02-14] MEDS: CLONazepam 1 mg Tablet PO ×2 (08:54→18:08)
[2023-02-14] MEDS: nicotine 2 mg Gum BUCCAL ×4 (08:55→23:14)
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
[2023-02-14] MEDS: haloperidol 5 mg Tablet PO (13:13)
--- NOTE | 2023-02-14 13:32 | PC.NURSE ---
1240 pt yelling requesting prn medication for agitation, went into dayroom pt had thrown food on wall and floor yelling at staff. when speaking with pt stated I either threw it or i would punch her. explained to pt that either choice was not a good choice. pt stated she did not care. pt continued to yell, disrupt other patients. attempts to deescalate pt unsuccessful exscorted pt to room voluntary.
--- NOTE | 2023-02-14 13:38 | W.PM.BREST ---
Face to Face: Restrn/Seclusion Events leading up to initiation: Verbalizing threat to self or others and Demonstrating self-destructive behavior (cutting, hitting leon etc.) (Throwing food multiple times.) Patient reaction since intervention applied: Behaviors/threats have lessened, but still present Recent labs reviewed: Yes Review of medications: Yes Patient's current medical/behavioral condition: No new concerns since last ROS Need for restraint or seclusion is: Continued (patient is working towards a plan for discontinuing the seclusion as soon as is reasonable.) Attending notified: Attending completed assessment
[2023-02-14 14:00] VITALS: RESP 18
[2023-02-14] MEDS: hyDROXYzine 25 mg Capsule 50 MG PO (14:44)
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
[2023-02-14 19:56] VITALS: BP 118/80; PULSE 92; RESP 20; TEMP 36.8; O2SAT 98
[2023-02-14] MEDS: ziprasidone hcl 40 mg Capsule PO (21:56)
[2023-02-14] MEDS: OLANZapine 5 mg ODT 15 MG PO (21:56)
[2023-02-14] MEDS: diphenhydrAMINE 50 mg Capsule PO (21:56)
[2023-02-14] MEDS: trazodone 50 mg Tablet PO (21:56)
--- NOTE | 2023-02-14 22:21 | PC.NURSE ---
during assessment pt denied SI, asked pt do you have thoughts of HI, pt said yes, asked pt who she had HI towards , pt replied the animals on dayshift who took me in to that room? RN asked pt, what was your behavior at the time you were taken into seclusion? Pt refused to answer questions, stated I need to write things down RN explained, to write down what she needed in few moments after the assessment, pt stated no I'm doing it right now RN explained, that the assessment was over as RN has other pt's to take care of and pull medications. pt is agitated that she isn't taken care of right now . During medication pass, RN had meds pulled and was beginning to scan when she asked for prazosin. Explained to patient RN would need to call MD and ask for an order. RN would give her these meds and give the prazosin later after I pass meds and call the MD. pt stormed away from the window leaving her drinks and snack. pt later came to window while RN was passing meds and asked for sandwich. BIOTECHNICIAN was giving another pt a sandwich and this pt also requested one. Pt asked to talk to propellant charge zone assembler and said I only want him to give me my meds. pharmacy aide stated he would give her medications. RN explained to please be pt as he has other pts he passing meds and taking care of as well. While waiting for her meds, few moments later, pt came out of another patient room without her green scrubs on whom she joins bathrooms with, pt stated we need toilet paper and wipes, both of us need it RN explained that pt isn't allowed in another pt room for any reason. she is to notify staff with any needs. pt stated she understood
--- NOTE | 2023-02-14 23:34 | PC.NURSE ---
about 0 pt comes out of her room without pants on, only a shirt and briefs to talk to patient in their room trying to rest, pt again has been instructed she can't leave her room with green scrubs on, and she must always be fully clothed when leaving her room. pt replied I know i know repeatedly pt also continues to be intrusive with patient in adjoining room and talking to her through the door or opening it. Patient again has been asked to focus on herself, staff will take care of patient needs.
[2023-02-15 06:00] VITALS: BP 125/74; PULSE 120; RESP 16; TEMP 36.6; O2SAT 93
[2023-02-15] MEDS: ibuprofen 600 mg Tablet PO ×2 (06:40→22:49)
[2023-02-15] MEDS: nicotine 2 mg Gum BUCCAL ×4 (06:41→14:14)
[2023-02-15] MEDS: blistex lip oint 7 gm Tube 1 APPLIC TOPICAL ×3 (07:49→22:50)
[2023-02-15] MEDS: neomycin-poly-bacitracin oint 28 gm 1 APPLIC TOPICAL (07:49)
[2023-02-15] MEDS: CLONazepam 1 mg Tablet PO ×2 (08:00→18:01)
[2023-02-15] MEDS: lithium carbonate 300 mg Capsule PO ×2 (08:00→18:01)
[2023-02-15] MEDS: meloxicam 7.5 mg tablet 15 MG PO (08:00)
[2023-02-15] MEDS: sennosides-docusate Tablet 1 TAB PO (08:00)
--- NOTE | 2023-02-15 08:46 | PC.NURSE ---
partial assessment performed due to patient agitation and refusal. Patient unwilling to cooperate with nursing staff on her care. patient demanding and upset upon asking if can perform assessment.
[2023-02-15] MEDS: venlafaxine ER (24HR) 37.5 mg Capsule PO (08:58)
[2023-02-15] MEDS: benzocaine 20% 7 gm 1 APPLIC MUCOUS MEM ×2 (09:01→22:50)
[2023-02-15 14:00] VITALS: BP 121/76; PULSE 75; RESP 18; TEMP 36.5; O2SAT 94
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
[2023-02-15] MEDS: nicotine 4 mg lozenge MUCOUS MEM ×2 (18:49→22:49)
[2023-02-15] MEDS: OLANZapine 5 mg ODT 15 MG PO (20:42)
[2023-02-15 21:57] VITALS: BP 109/76; PULSE 79; RESP 18; TEMP 36.4; O2SAT 96
[2023-02-15] MEDS: ziprasidone hcl 40 mg Capsule PO (22:33)
[2023-02-15] MEDS: hydrocortisone 2.5% cream 28 gm 1 APPLIC PR (22:51)
[2023-02-16] MEDS: trazodone 50 mg Tablet PO ×3 (01:26→23:12)
--- NOTE | 2023-02-16 03:36 | PC.NURSE ---
pt has been in and out of patient room to nurse's station making requests all night. She has been agitated, cursing at staff, stating Fuck you to RN and discharge coordinator when her demands aren't met, requests coffee at 0200, wants another pen because she can't find the other in her room, wants to staff to tear paper off the crayons, stated the food she ordered at lunch sucked and i didn't eat all day , asking pt to please lower voice as to not wake up other patients, she continues to be argumentative. pt has been asked to please lay down and rest so her medications can work and she can rest, she continues to yell at staff, Why doesn't Dr. Box just let me go home waving her arms in the air...
[2023-02-16 06:00] VITALS: RESP 16
[2023-02-16] MEDS: sennosides-docusate Tablet 1 TAB PO ×2 (08:44→18:54)
[2023-02-16] MEDS: CLONazepam 1 mg Tablet PO ×2 (08:45→18:54)
[2023-02-16] MEDS: venlafaxine ER (24HR) 37.5 mg Capsule PO (08:45)
[2023-02-16] MEDS: meloxicam 7.5 mg tablet 15 MG PO (08:45)
[2023-02-16] MEDS: ibuprofen 600 mg Tablet PO ×2 (08:52→20:35)
[2023-02-16] MEDS: OLANZapine 5 mg ODT PO (08:53)
[2023-02-16] MEDS: blistex lip oint 7 gm Tube 1 APPLIC TOPICAL (10:13)
[2023-02-16] MEDS: neomycin-poly-bacitracin oint 28 gm 1 APPLIC TOPICAL (10:15)
[2023-02-16] MEDS: benzocaine 20% 7 gm 1 APPLIC MUCOUS MEM (10:16)
--- NOTE | 2023-02-16 11:38 | PC.NURSE ---
pt. refusing to keep id braclet on. this RN has tried repeatedly to place band on pt. patient keeps removing band and refuses to allow this RN to place it again at this time.
[2023-02-16 14:00] VITALS: RESP 18
[2023-02-16] MEDS: hyDROXYzine 25 mg Capsule 50 MG PO ×2 (15:02→23:12)
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
[2023-02-16] MEDS: OLANZapine 5 mg ODT 15 MG PO (20:36)
--- NOTE | 2023-02-16 20:45 | PC.NURSE ---
PRN trazodone for sleep and Ibuprofen for moderate pain given as ordered per pt request.
[2023-02-16 22:00] VITALS: BP 129/88; PULSE 87; RESP 18; O2SAT 95
[2023-02-16] MEDS: ziprasidone hcl 40 mg Capsule PO (23:38)
[2023-02-17] MEDS: phenyleph-mineral oil-petrolat Oint 28 gm 1 APPLIC TOPICAL (02:41)
[2023-02-17] MEDS: LORazepam 2 mg/mL INJ 1 mL IM (04:05)
--- NOTE | 2023-02-17 04:05 | PC.NURSE ---
Pt displays behaviors such as repeatedly stating the same demands over and over at the nurses station, pressing the bathroom call light several times in a row and screaming what the fuck fuck this at the staff in the hallway and nurses station. Pt was given an IM of 2mg Ativan by this MANAGER EXPORT
[2023-02-17] MEDS: ibuprofen 600 mg Tablet PO ×3 (04:11→23:19)
--- NOTE | 2023-02-17 05:30 | PC.NURSE ---
pt has been demanding, intrusive, refused evening assessment, pt has been at nurse's station most of the night making demands, and cursing. Pt slept for a short while. She's uncooperative, cursing at staff, pt refuses to follow direction. pt has asked for all her PRN's which have been given and pt continues to be agitated. at 0350 pt at nurses's station agitated, demanding coffee, using profanity when not getting her way, tossing crayons and cups in to nurse's station, reaching in to nurse's station, stripping bed apart, yelling and being disruptive on unit, asking staff to look up phone numbers to hotels and shelters when staff has asked her repeatedly to rest and lay down as she is disrupting unit, turning emergency call light on and off in bathroom, Security called for backup, hands were not placed on patient, Ativan 2mg IM given right gluteal. Pt continued to be agitated, Ibuprofen given per patient request.
[2023-02-17 06:00] VITALS: RESP 15
[2023-02-17] MEDS: CLONazepam 1 mg Tablet PO ×2 (08:23→18:09)
[2023-02-17] MEDS: meloxicam 7.5 mg tablet 15 MG PO (08:24)
[2023-02-17] MEDS: venlafaxine ER (24HR) 75 mg Capsule PO (08:24)
[2023-02-17] MEDS: neomycin-poly-bacitracin oint 28 gm 1 APPLIC TOPICAL ×2 (08:25→18:08)
[2023-02-17] MEDS: blistex lip oint 7 gm Tube 1 APPLIC TOPICAL (10:05)
[2023-02-17] MEDS: benzocaine 20% 7 gm 1 APPLIC MUCOUS MEM (10:05)
[2023-02-17] MEDS: nicotine 4 mg lozenge MUCOUS MEM (11:14)
[2023-02-17 14:00] VITALS: BP 113/74; PULSE 80; RESP 18; TEMP 36.4; O2SAT 97
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
[2023-02-17] MEDS: hyDROXYzine 25 mg Capsule 50 MG PO (16:52)
[2023-02-17] MEDS: acetaminophen 325 mg Tablet 650 MG PO (16:53)
[2023-02-17] MEDS: sennosides-docusate Tablet 1 TAB PO (18:08)
[2023-02-17] MEDS: trazodone 50 mg Tablet PO (20:25)
--- NOTE | 2023-02-17 20:25 | PC.NURSE ---
PRN trazodone for sleep and ibuprofen for moderate pain given as ordered per pt request.
[2023-02-17] MEDS: OLANZapine 5 mg ODT 15 MG PO (20:26)
[2023-02-17 22:00] VITALS: BP 99/64; PULSE 73; RESP 18; O2SAT 97
--- NOTE | 2023-02-18 02:30 | PC.NURSE ---
pt continues to be intrusive, demanding, in pt's personal space, peer reported to staff pt is asking pts for money and asking them color pages and other things for them on the unit, wire charger discussed with pt unit rules again and boundaries, during evening assessment, pt denies SI/HI, states the only time i hear and see things is when I don't take my medicine for PTSD I only hear or see things at when I'm asleep RN discussed with patient she importance of sleeping at night. pt verbalized understanding
[2023-02-18 06:00] VITALS: BP 122/82; PULSE 73; RESP 18; TEMP 37; O2SAT 97
[2023-02-18] MEDS: nicotine 4 mg lozenge MUCOUS MEM ×3 (06:33→18:18)
[2023-02-18] MEDS: meloxicam 7.5 mg tablet 15 MG PO (08:45)
[2023-02-18] MEDS: venlafaxine ER (24HR) 75 mg Capsule PO (08:46)
[2023-02-18] MEDS: sennosides-docusate Tablet 1 TAB PO ×2 (08:46→18:17)
[2023-02-18] MEDS: carBAMazepine 200 mg Tablet PO ×2 (08:46→18:17)
[2023-02-18] MEDS: CLONazepam 1 mg Tablet PO ×2 (09:14→18:17)
[2023-02-18] MEDS: neomycin-poly-bacitracin oint 28 gm 1 APPLIC TOPICAL (09:14)
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
[2023-02-18] MEDS: benzocaine 20% 7 gm 1 APPLIC MUCOUS MEM (12:47)
[2023-02-18] MEDS: blistex lip oint 7 gm Tube 1 APPLIC TOPICAL (12:48)
[2023-02-18] MEDS: hydrocortisone 2.5% cream 28 gm 1 APPLIC PR (12:49)
[2023-02-18] MEDS: ziprasidone hcl 40 mg Capsule PO (12:58)
[2023-02-18 14:00] VITALS: BP 113/76; PULSE 72; RESP 18; O2SAT 98
[2023-02-18] MEDS: acetaminophen 325 mg Tablet 650 MG PO (15:58)
[2023-02-18] MEDS: magnesium hydroxide 30 mL UDC PO (15:59)
[2023-02-18 22:00] VITALS: BP 106/71; PULSE 87; RESP 16; TEMP 36.4; O2SAT 97
[2023-02-19] MEDS: OLANZapine 5 mg ODT 15 MG PO ×2 (00:59→21:00)
[2023-02-19 06:00] VITALS: RESP 18
[2023-02-19] MEDS: sennosides-docusate Tablet 1 TAB PO ×2 (08:06→18:44)
[2023-02-19] MEDS: meloxicam 7.5 mg tablet 15 MG PO (08:06)
[2023-02-19] MEDS: venlafaxine ER (24HR) 75 mg Capsule PO (08:07)
[2023-02-19] MEDS: CLONazepam 1 mg Tablet PO ×2 (08:07→18:44)
[2023-02-19] MEDS: acetaminophen 325 mg Tablet 650 MG PO ×3 (08:07→21:19)
[2023-02-19] MEDS: carBAMazepine 200 mg Tablet PO ×2 (08:07→18:44)
--- NOTE | 2023-02-19 09:41 | PC.NURSE ---
Pt up to nurses station; intrusive, perseverating on somatic issues and her requests. Pt always believing she is leaving and repeatedly asks to have appointments made. Redirected. SW also informed pt it was too early to worry about any appointments right now. Pt said she was tired and was going to go to sleep, then back up to the nurses station asking have I had all my prns? When asked what she needed, pt said she wanted something to help her stay asleep. Pt reminded of the time and informed staff would not give her something for sleep at 0930. Pt encouraged to return to her bed and rest. Pt said she didn't feel so good, but didn't elaborate. Reported she hadn't had a bm for a few days. Took her senna but refused any MOM.
[2023-02-19] MEDS: nicotine 4 mg lozenge MUCOUS MEM (11:07)
--- NOTE | 2023-02-19 11:08 | PC.NURSE ---
Pt requested nicotine lozenge. Then pt asked for a cup so she could have some place to put it later. Staff re-educated about how to use a lozenge, including that it needs to stay in her mouth until it's gone; it shouldn't be removed and used later. Pt verbalized her understanding then talked about what does she do with it when she's ready to lay down. Pt instructed not to ask for medication prior to going to bed. Pt is allergic to adhesive so using a patch is not an option. Pt reported she couldn't chew the gum due to the condition of her teeth. Pt became irritated when staff attempted to explain she needed to use her medications appropriately. Pt said staff didn't need to tell her the same thing repeatedly; she's got it. Will continue to monitor pt's compliance to this and consult the MD as needed.
[2023-02-19] MEDS: ziprasidone hcl 40 mg Capsule PO ×2 (13:29→23:29)
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
[2023-02-19] MEDS: benzocaine 20% 7 gm 1 APPLIC MUCOUS MEM (13:40)
[2023-02-19 14:00] VITALS: BP 117/73; PULSE 87; RESP 18; TEMP 36.8; O2SAT 99
[2023-02-19 20:51] VITALS: BP 118/73; PULSE 80; RESP 18; TEMP 36.6; O2SAT 97
[2023-02-20] MEDS: acetaminophen 325 mg Tablet 650 MG PO ×3 (05:52→21:31)
[2023-02-20] MEDS: nicotine 4 mg lozenge MUCOUS MEM (06:20)
[2023-02-20] MEDS: blistex lip oint 7 gm Tube 1 APPLIC TOPICAL (06:20)
[2023-02-20] MEDS: carBAMazepine 200 mg Tablet PO ×2 (08:43→17:56)
[2023-02-20] MEDS: meloxicam 7.5 mg tablet 15 MG PO (08:44)
[2023-02-20] MEDS: venlafaxine ER (24HR) 75 mg Capsule PO ×2 (08:44→09:51)
[2023-02-20] MEDS: sennosides-docusate Tablet 1 TAB PO ×2 (08:44→17:56)
[2023-02-20] MEDS: magnesium hydroxide 30 mL UDC PO (08:44)
[2023-02-20] MEDS: CLONazepam 1 mg Tablet PO ×2 (08:44→17:56)
[2023-02-20] MEDS: neomycin-poly-bacitracin oint 28 gm 1 APPLIC TOPICAL (09:30)
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
[2023-02-20] MEDS: ziprasidone hcl 40 mg Capsule PO (12:24)
[2023-02-20] MEDS: ibuprofen 600 mg Tablet PO (13:47)
[2023-02-20 14:00] VITALS: BP 116/78; PULSE 88; RESP 18; TEMP 36.2; O2SAT 99
[2023-02-20 20:08] VITALS: BP 105/67; PULSE 86; RESP 16; TEMP 36.7; O2SAT 96
[2023-02-20] MEDS: OLANZapine 5 mg ODT 15 MG PO (21:31)
--- NOTE | 2023-02-21 04:48 | PC.NURSE ---
At evening medication pass, patient stated that she felt like she had a UTI, specimen cup given to patient. Patient then demanded that staff open the cleansing wipe, she was redirected & asked to attempt to open it, her response was I don't have my glasses , to which this RN attempted to show her where she needs to tear in order to open the wipe herself, she then said Fuck this & walked away.
[2023-02-21 06:00] VITALS: BP 160/89; PULSE 78; RESP 16; TEMP 36.3; O2SAT 97
[2023-02-21] MEDS: meloxicam 7.5 mg tablet 15 MG PO (08:20)
[2023-02-21] MEDS: carBAMazepine 200 mg Tablet PO ×2 (08:20→18:15)
[2023-02-21] MEDS: venlafaxine ER (24HR) 75 mg Capsule 150 MG PO (08:20)
[2023-02-21] MEDS: CLONazepam 1 mg Tablet PO ×2 (08:20→18:16)
[2023-02-21] MEDS: sennosides-docusate Tablet 1 TAB PO ×2 (08:20→18:16)
[2023-02-21] MEDS: ibuprofen 600 mg Tablet PO (08:27)
[2023-02-21] MEDS: neomycin-poly-bacitracin oint 28 gm 1 APPLIC TOPICAL ×2 (08:42→18:28)
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
[2023-02-21 09:10] LABS: Bilirubin Urine Neg (Negative); Blood Urine Neg (Negative); Glucose Urine UA Norm (Normal); Ketones Urine Negative (Negative); Leukocyte Esterase Urine Negative (Negative); Nitrate Urine Negative (Negative); Protein Urine Neg (Negative); Specific Gravity, Urine 1.015 (1.005-1.030); Urine Appearance Clear (CLEAR); Urine Color Straw (Yellow); Urobilinogen Urine Norm (Negative); pH Urine 7 (5-7)
[2023-02-21 09:11] LABS: Squamous Epithelial Cell Urine 0-4 /hpf (0-5)
[2023-02-21 09:13] LABS: Bacteria Urine TRACE /hpf; Mucus Urine TRACE /hpf
[2023-02-21 09:15] LABS: Add Urine Culture? No
[2023-02-21] MEDS: nicotine 4 mg lozenge MUCOUS MEM ×2 (09:25→15:06)
[2023-02-21 14:00] VITALS: BP 146/81; PULSE 92; RESP 18; TEMP 36.4; O2SAT 98
[2023-02-21] MEDS: ziprasidone hcl 40 mg Capsule PO (15:05)
[2023-02-21] MEDS: acetaminophen 325 mg Tablet 650 MG PO (18:15)
[2023-02-21 20:07] VITALS: BP 158/95; PULSE 68; RESP 18; TEMP 36.6; O2SAT 99
[2023-02-21] MEDS: OLANZapine 5 mg ODT 15 MG PO (20:13)
[2023-02-22] MEDS: acetaminophen 325 mg Tablet 650 MG PO ×2 (02:42→15:24)
[2023-02-22] MEDS: carBAMazepine 200 mg Tablet PO ×2 (08:03→17:57)
[2023-02-22] MEDS: CLONazepam 1 mg Tablet PO ×2 (08:03→17:57)
[2023-02-22] MEDS: venlafaxine ER (24HR) 75 mg Capsule 150 MG PO (08:03)
[2023-02-22] MEDS: sennosides-docusate Tablet 1 TAB PO ×2 (08:03→17:57)
[2023-02-22] MEDS: meloxicam 7.5 mg tablet 15 MG PO (08:04)
[2023-02-22] MEDS: neomycin-poly-bacitracin oint 28 gm 1 APPLIC TOPICAL (08:04)
[2023-02-22] MEDS: blistex lip oint 7 gm Tube 1 APPLIC TOPICAL (08:10)
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
[2023-02-22] MEDS: nicotine 4 mg lozenge MUCOUS MEM ×2 (13:05→15:24)
[2023-02-22 14:00] VITALS: BP 119/83; PULSE 78; RESP 18; TEMP 36.3; O2SAT 98
[2023-02-22] MEDS: OLANZapine 5 mg ODT PO (14:28)
--- NOTE | 2023-02-22 14:29 | PC.NURSE ---
Patient states that she is feeling anxious while at group. Patient requested medication for this. Administered Zyprexa 5mg PO to patient.
--- NOTE | 2023-02-22 14:40 | PC.NURSE ---
attempted to follow up call to clinic with dr. farias. attempted to fax release of information to receive medication list. will be awaitng a call back from doctor.
[2023-02-22] MEDS: OLANZapine 10 mg ODT 20 MG PO (19:40)
[2023-02-22 19:53] VITALS: BP 109/68; PULSE 87; RESP 20; TEMP 36.9; O2SAT 97
[2023-02-23 06:00] VITALS: BP 124/76; PULSE 85; RESP 20; TEMP 36.8; O2SAT 97
[2023-02-23] MEDS: CLONazepam 0.5 mg Tablet PO (06:31)
[2023-02-23] MEDS: ibuprofen 600 mg Tablet PO (06:38)
[2023-02-23] MEDS: nicotine 4 mg lozenge MUCOUS MEM ×2 (07:32→10:30)
[2023-02-23] MEDS: sennosides-docusate Tablet 1 TAB PO (07:55)
[2023-02-23] MEDS: CLONazepam 1 mg Tablet PO (07:55)
[2023-02-23] MEDS: carBAMazepine 200 mg Tablet PO (07:56)
[2023-02-23] MEDS: meloxicam 7.5 mg tablet 15 MG PO (07:56)
[2023-02-23] MEDS: venlafaxine ER (24HR) 75 mg Capsule 150 MG PO (07:57)
[2023-02-23 12:29] VITALS: BP 124/76; PULSE 85; RESP 20; TEMP 36.8; O2SAT 97
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
[2023-02-23] MEDS: hyDROXYzine 25 mg Capsule 50 MG PO (13:18)
== END 2023-02-23 13:50 | disposition home or self-care (01) | DRG 885 ==
LOC: ER 23:29 → NP 01-29 00:05
PROVIDERS: Psychiatry & Neurology Psychiatry; Admitting Provider Psychiatry & Neurology Psychiatry; Emergency Provider Emergency Medicine; PCP Family Medicine; Visit Provider Psychiatry & Neurology Psychiatry
DX: F33.3 Major depressive disorder, recurrent, severe with psychotic symptoms (principal); N39.0 Urinary tract infection, site not specified; T76.21XA Adult sexual abuse, suspected, initial encounter; F41.9 Anxiety disorder, unspecified; F43.10 Post-traumatic stress disorder, unspecified
CPT/HCPCS: 36415; 70450; 80053; 80306; 80307; 81001; 83735; 85025; 96372; 97150; 97165; 99285; J1630; J2060; Q0163

== ENCOUNTER 2023-04-24 12:18 | Emergency (ER) | payer OTHER, MEDICAID, SELFPAY ==
[2023-04-24 12:28] VITALS: BMI 15.5
[2023-04-24 12:36] VITALS: BP 120/92; PULSE 76; RESP 18; TEMP 36.4; O2SAT 97
--- NOTE | 2023-04-24 12:41 | PC.NURSE ---
Pt placed in green paper scrubs, was washed up with bath wipes, given clean socks and a clean brief. Vital signs and triage assessment completed. Pt is not HI/SI or elopement risk. She is scared and does not want anyone to know she is here. registration and Dr. jasso.
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
--- NOTE | 2023-04-24 13:31 | PC.NURSE ---
[facility]'S DEPARTMENT CONTACTED FOR PT TO MAKE REPORT. [facility] STATES THEY DO NOT HAVE AN AVAILABLE DEPUTY TO SEND TO [facility] TO OBTAIN REPORT. [facility] INSTRUCTED TO CALL [facility]'S OFFICE TO MAKE REPORT. [facility]'S OFFICE CALLED.
--- NOTE | 2023-04-24 13:59 | PC.SOCIAL ---
CM called by ER about need with help to get patient into [facility]. CM called and [facility] doesnt have and empty bed, so tried to call [facility] , had to leave a message. CM Called ER and let nurse know what was going on and also called [facility] comfort station supervisor to let her know what CM had tried to do. When MARIBELL spoke to ER nurse she asked about possible [place] area, Nurse stated patient isnt talking to many people and is unsure if she would want to go that far.
--- NOTE | 2023-04-24 14:00 | PC.NURSE ---
PT REFUSED TO ALLOW STAFF TO OBTAIN LAB WORK AND STATED SHE WISHES TO LEAVE. PT REDIRECTED AND CALMED.
--- NOTE | 2023-04-24 14:25 | PC.NURSE ---
PT WANDERING ER. PT REDIRECTED BACK TO ROOM. PT STAATES SHE WISHES TO LEAVE AND GO TO HOMELESS LONG TERM. ED PHYSICIAN NOTIFIED
--- NOTE | 2023-04-24 14:30 | PC.NURSE ---
Pt is up ambulating in hallway and wanting to go out front to the registration desk to talk to the [facility]'s department . I explained to pt that the [facility] department was not out there. She stated that she wants to go stand out at the ER registration desk because it's too damn cold back here and no one will fucking listen to me. Pt was asked to please go back to her room, we would get her warm blankets, and that we can call the [facility] dept to come speak to her again if we need to. Pt refused to go back to her room - we told her that if she did not want to comply, she could sign out AMA. She stated, I'm not fucking going out against medical advice, I'll go back to my fucking chair and get me some fucking hot coffee . Pt was walked back to [facility] outside of room 9 (she is admitted to room 9 but refused to go back in to her room). Dr. Demarco attempted to talk with patient but she stated that she wasn't talking to him. She covered her head with her blankets.
--- NOTE | 2023-04-24 14:33 | PC.NURSE ---
[facility] DEPUTY ARRIVED AND OBTAINED REPORT FROM PT.
--- NOTE | 2023-04-24 14:39 | PC.NURSE ---
Pt was talked to by Dr. Demarco about a plan for her because she is refusing care, refusing to give blood and urine samples for evaluation, and is being rude to staff. Pt stood up out of chair and told charge nurse that she want that damn AMA paper, i'll sign it and I'll get the heck out of here . Pt was given the paper and she signed. Pt did not have any belongings with her - left in green scrubs and [employer] identifier socks.
== END 2023-04-24 14:34 | disposition left against medical advice (07) ==
PROVIDERS: Emergency Provider Family Medicine; PCP Family Medicine
DX: F41.9 Anxiety disorder, unspecified (principal); T74.11XA Adult physical abuse, confirmed, initial encounter; Z53.21 Procedure and treatment not carried out due to patient leaving prior to being seen by health care provider; F17.210 Nicotine dependence, cigarettes, uncomplicated; Z85.038 Personal history of other malignant neoplasm of large intestine; Y07.030 Male partner, current, perpetrator of maltreatment and neglect
CPT/HCPCS: 99282

== ENCOUNTER 2023-04-26 01:31 | Emergency (ER) | payer OTHER, MEDICAID, SELFPAY ==
[2023-04-26 01:39] VITALS: BMI 13.3
--- NOTE | 2023-04-26 01:41 | W.ED.ABDPA2 ---
HPI - Abdominal Pain General: Chief Complaint: Abdominal Pain Stated Complaint: abd pain Time Seen by Provider: 04/26/23 01:41 History of Present Illness: 57-year-old female comes in today with complaints of abdominal pain for the last 3 months with diarrhea stools. Patient is scheduled to follow-up with her oncologist at 15 May. Patient came in tonight for complaints of abdominal pain and x-ray to rule out obstruction. Patient denies any fever or nausea or vomiting. Patient has a mental health disorder along with a history of colon cancer that was treated with colon resection 2 years ago. Associated Symptoms: Reports diarrhea; Denies fever(s) Review of Systems General: Reports: 10 or more systems reviewed and unremarkable except in HPI and below Const: Denies: fever(s) Card: Denies: chest pain Resp: Denies: dyspnea GI: Reports: abdominal pain and diarrhea : Reports: difficulty voiding Skin/Breast: Denies: rash PFSH ED PFSH: Medical History Colon cancer History of colon polyps Irritable bowel disease No pertinent past medical history Surgical History History of colon resection History of tubal ligation Social History Smoking and tobacco status: current every day smoker Physical Exam Const: COMMON NORMALS: alert HENMT: COMMON NORMALS: normocephalic HEAD & SCALP: normocephalic MOUTH: Normal oral and palatal mucosa present Neck/C-Spine: COMMON NORMALS: full ROM Resp: COMMON NORMALS: normal respiratory effort and clear to auscultation bilaterally AUSCULTATION: clear to auscultation bilaterally Cardio: COMMON NORMALS: regular rate and regular rhythm RATE: regular rate RHYTHM: regular rhythm GI: COMMON NORMALS: Soft to palpation PALPATION: Yes Soft to palpation and Yes Tenderness to palpation present (GI) (Generalized) Extremity: COMMON NORMALS: normal to inspection Neuro: SENSORIUM/ORIENTATION: Yes alert Skin: COMMON NORMALS: turgor normal GENERAL SKIN EXAM: turgor normal Course Vital Signs: Vital signs: Vital Signs Temperature 98.8 F 04/26/23 01:45 Pulse Rate 102 H 04/26/23 01:45 Respiratory Rate 18 04/26/23 01:45 Blood Pressure 158/101 04/26/23 01:45 Pulse Oximetry 99 04/26/23 01:45 Oxygen Delivery Me thod Room Air 04/26/23 01:45 MDM - Abdominal Pain Medical Decision Making 57-year-old female comes in today for weight loss, abdominal pain, and persistent diarrhea. Patient has a history of colon cancer where she had a bowel resection about 2 years ago. Since then patient has had some diarrhea on and off but for the last 3 months it has progressed and now she cannot gain weight. Patient appears nontoxic. Patient is abdomen is flat. Patient does appear cachectic. Differential diagnosis includes metastasis, colon cancer, functional diarrhea, homelessness. Patient refusing laboratory work in the emergency room. Patient did agree for a acute abdominal series which showed no abnormalities in the lung simms except emphysematous changes, and normal bowel gas pattern. I believe patient probably has chronic diarrhea secondary to colon resection from her colon cancer. I will request case management to help patient with follow-up for colonoscopy. Patient reported understanding agreed to plan. Patient was given 1 hydrocodone due to her abdominal pain in the ER. Discharge Plan Discharge Patient Disposition: Home Clinical Impression: Abdominal pain Qualifiers: Abdominal location: lower abdomen, unspecified Qualified Code(s): R10.30 - Lower abdominal pain, unspecified Colon cancer Qualifiers: Colon location: unspecified part of colon Qualified Code(s): C18.9 - Malignant neoplasm of colon, unspecified Condition: Stable Prescriptions: No Action prednisone 20 mg tablet 60 mg PO DAILY 5 Days Qty: 15 0RF famotidine [Pepcid] 40 mg tablet 40 mg PO BID 5 Days Qty: 10 0RF cetirizine [Zyrtec] 10 mg tablet 10 mg PO DAILY Qty: 30 0RF venlafaxine 75 mg Capsule,Extended Release 24hr 150 mg PO DAILY 30 Days Qty: 60 1RF clonazepam 0.5 mg Tablet 0.5 mg PO QAM 30 Days Qty: 30 1RF clonazepam 1 mg Tablet 1 mg PO BEDTIME 30 Days Qty: 30 1RF meloxicam 7.5 mg Tablet 15 mg PO DAILY 30 Days Qty: 60 1RF carbamazepine 200 mg Tablet 200 mg PO BID 30 Days Qty: 60 1RF olanzapine 20 mg tablet 20 mg PO QPM Qty: 30 1RF Discharge Orders: Discharge ED (Routine); Ordered 04/26/23 Ordered By: Johnny Tejeda Referrals: Lauri Gaona DO [Primary Care Provider] - Patient Instructions: Abdominal Pain (ED) Activity Restrictions/Additional Instructions: Home and rest. Drink plenty water and fluids. Use electrolyte solution to help with maintaining electrolytes from diarrhea. Follow-up with primary care for further instructions and treatment of your abdominal pain. Coding Level of Care Code ED Poultry Husbandry Teacher for Rema Lucas
[2023-04-26 01:45] VITALS: BP 158/101; PULSE 102; RESP 18; TEMP 37.1; O2SAT 99
--- NOTE | 2023-04-26 01:46 | XRR_ITS ---
PROCEDURE INFORMATION: Exam: XR Abdomen Exam date and time: 04/26/2023 2:24 AM Age: 57 years old Clinical indication: Abdominal pain; Generalized; Additional info: Abd pain, diarrhea TECHNIQUE: Imaging protocol: Radiologic exam of the abdomen. Views: 2 Views. Upright and supine views. COMPARISON: CT chest abdpel w/*[id number] 12/25/2022 11:45 PM FINDINGS: Gastrointestinal tract: Normal. No bowel dilation. Intraperitoneal space: Normal. No free air. Bones/joints: Unremarkable for age. XR/XR acute abdomen series [id number] IMPRESSION: No acute findings.
[2023-04-26] MEDS: HYDROcodone-acetaminophen 5-325 mg Tablet 1 TAB PO (01:54)
[2023-04-26 02:35] VITALS: RESP 18
--- NOTE | 2023-04-26 09:04 | DCPLANNER ---
Addendum entered by Meaghan Mirza 05/07/23 15:35: manager of compensation received the following message from the general surgery clinic regarding following up appointment: Unable to schedule due to no numbers in patient's chart Original Note: manager of compensation had message to schedule a follow up appointment for patient with general surgery. manager of compensation sent patients to the front office staff at general surgery. Patients information will be printed and reviewed. Clinic will call patient with appointment information.
== END 2023-04-26 02:47 | disposition home or self-care (01) ==
PROVIDERS: Emergency Provider Nurse Practitioner Family; PCP Family Medicine
DX: R10.30 Lower abdominal pain, unspecified (principal); C18.9 Malignant neoplasm of colon, unspecified; F17.210 Nicotine dependence, cigarettes, uncomplicated
CPT/HCPCS: 74022; 99283

== ENCOUNTER 2023-05-02 06:55 | Observation (INO) | payer OTHER, MEDICAID, SELFPAY ==
[2023-05-02] VITALS (10 sets, daily range): BP systolic 125–160; BP diastolic 72–95; PULSE 58–74; RESP 14–18; TEMP 36.7–36.9; O2SAT 93–98
--- NOTE | 2023-05-02 07:01 | W.ED.ABDPA2 ---
HPI - Abdominal Pain General: Chief Complaint: Abdominal Pain Stated Complaint: ABD PAIN Time Seen by Provider: 05/02/23 06:57 History of Present Illness: Ms. Hagen is a 58-year-old lady with complex past medical history including prior history of colon cancer with prior hemicolectomy presenting the emergency department for abdominal pain. She has chronic issues with abdominal pain but reports that she was doing well over the past few days. She began having lower abdominal pain this morning and subsequently had a bowel movement which made it significantly worse. She denies having to strain or abnormal consistency of stool. No blood in stool. Nausea associated with pain but no vomiting. She reports that this is worse than her prior episodes of pain at least that she can remember recently. No other specific changes in health, exacerbating, or alleviating factors identified. Pertinent past history: other Onset (ago): hour(s) Pain Consistency: constant Location: RLQ, LLQ and Suprapubic Quality: cramping and sharp Radiation: none Migration to: no migration Exacerbating factors: movement Relieving factors: nothing Associated Symptoms: Reports nausea; Denies constipation, fever(s), hematochezia, hematemesis, melena and vomiting Review of Systems General: Reports: 10 or more systems reviewed and unremarkable except in HPI and below Const: Denies: fever(s) GI: Reports: nausea; Denies: vomiting, hematemesis, constipation, hematochezia or melena PFSH ED PFSH: Medical History Colon cancer History of colon polyps Irritable bowel disease Surgical History History of colon resection History of tubal ligation Family History Mother Depression Social History Smoking and tobacco status: current every day smoker Physical Exam Const: COMMON NORMALS: alert GENERAL APPEARANCE: cooperative and well developed HENMT: COMMON NORMALS: normocephalic and atraumatic HEAD & SCALP: normocephalic and atraumatic Eye: COMMON NORMALS: conjunctivae normal CONJUNCTIVA: Yes conjunctivae normal SCLERA: sclerae normal Neck/C-Spine: COMMON NORMALS: supple GENERAL: Yes trachea midline Resp: COMMON NORMALS: clear to auscultation bilaterally EFFORT & INSPECTION: Yes able to speak in complete sentences AUSCULTATION: clear to auscultation bilaterally Cardio: COMMON NORMALS: regular rate and regular rhythm RATE: regular rate RHYTHM: regular rhythm GI: COMMON NORMALS: Soft to palpation PALPATION: Yes Soft to palpation, Yes Tenderness to palpation present (GI), Yes Guarding due to palpation present (GI) and No Rigid due to palpation Extremity: GENERAL: Yes normal exam except as noted and No edema Neuro: COMMON NORMALS: moves all extremities SENSORIUM/ORIENTATION: Yes alert and No Orientation impaired Psych: COMMON NORMALS: mental status grossly normal and Normal thought process present THOUGHT PROCESS: Normal thought process present Course Vital Signs: Vital signs: Vital Signs Temperature 97.7 F 05/03/23 11:46 Pulse Rate 70 05/03/23 11:46 Respiratory Rate 18 05/03/23 11:46 Blood Pressure 160/73 05/03/23 11:46 Pulse Oximetry 95 05/03/23 11:46 Oxygen Delivery Me thod Room Air 05/03/23 07:21 MDM - Abdominal Pain Medical Decision Making 58-year-old lady presenting with abdominal pain. Exam as above. Patient is nontoxic. Abdominal tenderness without evidence of acute surgical abdomen. Labs notable for no leukocytosis, normal hemoglobin and platelet count. Metabolic panel with mild hypokalemia. Lipase is elevated. Negative urinalysis. Abdomen and pelvis CT demonstrates likely colitis and proctitis as well as duodenitis. Clinically patient also has pancreatitis which may explain some generalized abnormalities. I do not believe that patient has cholangitis or hepatitis given laboratory and clinical history as well as physical exam findings. Periportal edema likely represents IV fluid administration. Patient treated with multiple rounds of medications including analgesia, antiemetic, and IV fluids and subsequently antibiotics. She still does not have sustained improvement and therefore it is reasonable to admit for observation. The results of ED evaluation were discussed with the patient including plan for admission due to requirement for level of care not available if discharged to prevent significant worsening/deterioration. Patient agreeable with plan. Discussed with hospitalist service who was agreeable to admit patient. Medical Records I reviewed the patient's medical records. Lab Data I reviewed the patient's lab results. 05/02/23 07:35 05/02/23 07:35 Labs/Radiology: Radiology Impressions Abdomen/Pelvis CT 05/02/23 08:08 IMPRESSION: 1. Periportal edema. Differential diagnosis includes iatrogenic systemic hypervolemia, passive hepatic congestion, acute viral hepatitis, cholangitis, and lymphatic obstruction in the mark hepatis. 2. Suggestive findings of duodenitis. 3. Suggestive findings of distal sigmoid colitis and proctitis. 4. Submucosal venous varices at the gastric fundus without other evidence of portal hypertension. 5. Small sliding-type hiatal hernia. 6. Mild diffuse pancreatic duct dilation. No visible pancreatic mass, cyst or stone. No gallstones. Common bile duct is borderline dilated. Findings are of uncertain significance. Correlate with liver function tests. 7. Partial colectomy with unremarkable right lower quadrant anastomosis. 8. Contrast reflux into a dilated left gonadal and adnexal veins. This finding is of uncertain significance but would contribute to a clinical diagnosis of pelvic congestion syndrome. COMMENTS: Consistent with the [employer]'s Incidental Findings Committee white paper (J Am Carmencita Radiol 2018): Any incidental renal lesion less than 1 cm or classified as too small to characterize, or any incidental cystic renal lesion characterized as simple-appearing, is likely benign. No follow-up imaging is recommended for these lesions per consensus recommendations based on imaging criteria. Laboratory Results WBC 6.2 10^3/uL (4.0-10.0) 05/02/23 07:35 RBC 3.97 10^6/uL (4.1-5.3) L 05/02/23 07:35 Hgb 12.0 g/dL (11.5-15.3) 05/02/23 07:35 Hct 38.7 % (37.0-47.0) 05/02/23 07:35 MCV 97.5 fl (81-99) 05/02/23 07:35 MCH 30.2 pg (28.0-34.0) 05/02/23 07:35 MCHC 31.0 g/dL (30.0-36.0) 05/02/23 07:35 RDW 14.5 % (12.1-15.1) 05/02/23 07:35 Plt Count 246 10^3/cmm (130-400) 05/02/23 07:35 MPV 9.7 fL (7.4-10.4) 05/02/23 07:35 Neut % (Auto) 73.0 % 05/02/23 07:35 Lymph % (Auto) 17.9 % 05/02/23 07:35 [place] % (Auto) 6.9 % 05/02/23 07:35 Eos % (Auto) 1.4 % 05/02/23 07:35 Baso % (Auto) 0.6 % 05/02/23 07:35 Neut # (Auto) 4.53 10^3/uL (1.8-7.7) 05/02/23 07:35 Lymph # (Auto) 1.1 10^3/uL (0.8-4.8) 05/02/23 07:35 [place] # (Auto) 0.4 10^3/uL (0.2-0.9) 05/02/23 07:35 Eos # (Auto) 0.1 10^3/uL (0.0-0.8) 05/02/23 07:35 Baso # (Auto) 0.0 10^3/uL (0.0-0.1) 05/02/23 07:35 Nucleated RBC % (auto) 0 % 05/02/23 07:35 Nucleated RBCs # 0.0 /100WBC 05/02/23 07:35 Sodium 143 mmol/L (136-145) 05/02/23 07:35 Potassium 3.3 mmol/L (3.5-5.1) L 05/02/23 07:35 Chloride 108 mmol/L (98-107) H 05/02/23 07:35 Carbon Dioxide 25 mmol/L (22-29) 05/02/23 07:35 Anion Gap 13.3 (5-19) 05/02/23 07:35 BUN 11 mg/dL (6-20) 05/02/23 07:35 Creatinine 0.7 mg/dL (0.5-0.9) 05/02/23 07:35 GFR Calculation 85.9 mL/min (90-130) L 05/02/23 07:35 Glucose 98 mg/dL (65-115) 05/02/23 07:35 Calculated Osmolality 295 mOsm/kg (285-295) 05/02/23 07:35 Calcium 8.9 mg/dL (8.5-10.5) 05/02/23 07:35 Total Bilirubin 0.4 mg/dL (0.15-1.2) 05/02/23 07:35 AST 24 U/L (0-32) 05/02/23 07:35 ALT 20 U/L (0-33) 05/02/23 07:35 Alkaline Phosphatase 67 U/L (35-105) 05/02/23 07:35 Total Protein 5.9 g/dL (6.6-8.7) L 05/02/23 07:35 Albumin 3.9 g/dL (3.5-5.2) 05/02/23 07:35 Globulin 2.0 g/dL (1.3-4.6) 05/02/23 07:35 Lipase 525 U/L (13-60) H 05/02/23 07:35 Urine Color Straw (Yellow) 05/02/23 07:35 Urine Appearance Clear (CLEAR) 05/02/23 07:35 Urine pH 7 (5-7) 05/02/23 07:35 Ur Specific [place] 1.010 (1.005-1.030) 05/02/23 07:35 Urine Protein Neg (Negative) 05/02/23 07:35 Urine Glucose (UA) Norm (Normal) 05/02/23 07:35 Urine Ketones Negative (Negative) 05/02/23 07:35 Urine Blood Neg (Negative) 05/02/23 07:35 Urine Nitrate Negative (Negative) 05/02/23 07:35 Urine Bilirubin Neg (Negative) 05/02/23 07:35 Urine Urobilinogen Norm mg/dL (Negative) 05/02/23 07:35 Ur Leukocyte Esterase Negative (Negative) 05/02/23 07:35 Discharge Plan Discharge Patient Disposition: Placed in Observation Admit Provider: Nito Rudd Clinical Impression: Abdominal pain, Pancreatitis, Colitis Coding Level of Care Code ED Vision Therapist for Rema Lucas
[2023-05-02] MEDS: morphine 4 mg/mL SDV 1 mL IVP ×3 (07:36→09:53)
[2023-05-02] MEDS: sodium chloride 0.9% 1,000 ML 999 ML IV (07:36)
[2023-05-02] MEDS: dicyclomine 10 mg Capsule PO (07:36)
[2023-05-02 07:44] LABS: Add Urine Microscopic? NO; Charge for UA Resulting for Rev
[2023-05-02 07:46] LABS: Basophils % 0.6 %; Eosinophils # 0.1 10^3/uL (0.0-0.8); Eosinophils % 1.4 %; Hematocrit 38.7 % (37.0-47.0); Lymphocytes # 1.1 10^3/uL (0.8-4.8); Lymphocytes % 17.9 %; Mean Corpuscular Hemoglobin 30.2 pg (28.0-34.0); Mean Corpuscular Volume 97.5 fl (81-99); Mean Platelet Volume 9.7 fL (7.4-10.4); Monocytes # 0.4 10^3/uL (0.2-0.9); Monocytes % 6.9 %; Neutrophils # 4.53 10^3/uL (1.8-7.7); Nucleated Red Blood Cells % 0 %; Platelet Count 246 10^3/cmm (130-400); Red Blood Count 3.97 10^6/uL (4.1-5.3); Red Cell Distribution Width 14.5 % (12.1-15.1); White Blood Count 6.2 10^3/uL (4.0-10.0)
[2023-05-02 08:01] LABS: Alanine Aminotransferase 20 U/L (0-33); Albumin Level 3.9 g/dL (3.5-5.2); Alkaline Phosphatase 67 U/L (35-105); Anion Gap 13.3 (5-19); Aspartate Amino Transferase 24 U/L (0-32); Blood Urea Nitrogen 11 mg/dL (6-20); Calcium 8.9 mg/dL (8.5-10.5); Carbon Dioxide 25 mmol/L (22-29); Chloride 108 mmol/L (98-107); Glomerular Filtration Rate 85.9 mL/min (90-130); Glucose 98 mg/dL (65-115); Osmolality Calculated 295 mOsm/kg (285-295); Potassium 3.3 mmol/L (3.5-5.1); Sodium 143 mmol/L (136-145); Total Bilirubin 0.4 mg/dL (0.15-1.2); Total Protein 5.9 g/dL (6.6-8.7)
[2023-05-02 08:06] LABS: Bilirubin Urine Neg (Negative); Blood Urine Neg (Negative); Glucose Urine UA Norm (Normal); Ketones Urine Negative (Negative); Leukocyte Esterase Urine Negative (Negative); Nitrate Urine Negative (Negative); Protein Urine Neg (Negative); Urine Appearance Clear (CLEAR); Urine Color Straw (Yellow); Urobilinogen Urine Norm (Negative); pH Urine 7 (5-7)
--- NOTE | 2023-05-02 08:08 | CTR_ITS ---
PROCEDURE INFORMATION: Exam: CT Abdomen And Pelvis With Contrast Exam date and time: 05/02/2023 8:40 AM Age: 58 years old Clinical indication: Abdominal pain; Localized; Lower; Additional info: Lower abd pain TECHNIQUE: Imaging protocol: Computed tomography of the abdomen and pelvis with contrast. Radiation optimization: All CT scans at this facility use at least one of these dose optimization techniques: automated exposure control; mA and/or kV adjustment per patient size (includes targeted exams where dose is matched to clinical indication); or iterative reconstruction. Contrast material: OMNI 350; Contrast volume: 80 ml; Contrast route: INTRAVENOUS (IV); REPORTING DATA: Count of CT and Cardiac NM exams in prior 12 months: This patient has received 3 known CTs and 0 known cardiac nuclear medicine studies in the 12 months prior to the current study. COMPARISON: CT chest abdpel w/*[id number] 12/25/2022 11:45 PM RADIATION DOSE METRICS: Total DLP (mGy-cm): 296.33 FINDINGS: Lungs: Lung bases are clear. Diaphragm: There is a small sliding-type hiatal hernia. Liver: There is a simple cyst in the liver. Moderate diffuse periportal edema in the liver. No liver mass. Gallbladder and bile ducts: The gallbladder is normal. There is no biliary dilation. Pancreas: The pancreatic parenchyma is normal. The pancreatic duct is diffusely dilated to 3 mm. No mass or stone at the ampulla. The common bile duct is borderline dilated measuring up to 7 mm diameter. Spleen: The spleen is unremarkable. Adrenal glands: The adrenal glands are unremarkable. Kidneys and ureters: There is a simple cyst in the right kidney. There is no hydronephrosis or stones. The left kidney and ureter are unremarkable. Stomach and bowel: The stomach is decompressed, preventing meaningful evaluation of wall thickness. There is diffuse wall thickening in the duodenum and proximal jejunum which may represent physiologic muscular contraction. There is subtle edema along the transverse duodenum. The small bowel is nondilated. Partial colectomy. Unremarkable anastomosis in the right lower quadrant. The remaining portion of the colon contains fluid and stool. There is mild edema in the deep pelvis surrounding the distal sigmoid and rectum. Appendix: The appendix is absent. Intraperitoneal space: Trace pelvic free fluid. There is no intraperitoneal free air. Vasculature: There is contrast reflux into dilated left gonadal and adnexal veins. Submucosal venous varices are seen at the gastric fundus. There is moderate aortic atherosclerotic disease. Lymph nodes: There is no lymphadenopathy in the retroperitoneum, mesentery, pelvis or inguinal regions. Urinary bladder: The urinary bladder is unremarkable. Reproductive: The uterus is unremarkable. There is no adnexal mass or cyst. Bones/joints: Bones are unremarkable. Soft tissues: The abdominal wall is intact. CT/CT abdomen pelvis w con* [id number] IMPRESSION: 1. Periportal edema. Differential diagnosis includes iatrogenic systemic hypervolemia, passive hepatic congestion, acute viral hepatitis, cholangitis, and lymphatic obstruction in the mark hepatis. 2. Suggestive findings of duodenitis. 3. Suggestive findings of distal sigmoid colitis and proctitis. 4. Submucosal venous varices at the gastric fundus without other evidence of portal hypertension. 5. Small sliding-type hiatal hernia. 6. Mild diffuse pancreatic duct dilation. No visible pancreatic mass, cyst or stone. No gallstones. Common bile duct is borderline dilated. Findings are of uncertain significance. Correlate with liver function tests. 7. Partial colectomy with unremarkable right lower quadrant anastomosis. 8. Contrast reflux into a dilated left gonadal and adnexal veins. This finding is of uncertain significance but would contribute to a clinical diagnosis of pelvic congestion syndrome. COMMENTS: Consistent with the [employer]'s Incidental Findings Committee white paper (J Am Carmencita Radiol 2018): Any incidental renal lesion less than 1 cm or classified as too small to characterize, or any incidental cystic renal lesion characterized as simple-appearing, is likely benign. No follow-up imaging is recommended for these lesions per consensus recommendations based on imaging criteria.
[2023-05-02 08:12] LABS: Lipase 525 U/L (13-60)
[2023-05-02] MEDS: iohexol 350 mg/mL 500 mL Btl (per mL) IV (08:44)
[2023-05-02] MEDS: ciprofloxacin 400 MG/200 ML PREMIX 200 MG IV (09:54)
[2023-05-02] MEDS: metroNIDAZOLE IV 500 MG/100 ML PREMIX 100 MG IV (09:57)
[2023-05-02] MEDS: lactated ringers 1,000 ML 50 ML IV (14:52)
--- NOTE | 2023-05-02 15:52 | P.HP_ITS ---
Providers/Chief Complaint Admitting Physician: Nito Rudd MD Primary Care Provider: Lauri Gaona DO Chief Complaint: ABD PAIN History of Present Illness Barbara Hagen is a 58 year old female with a past medical history significant for colon cancer status post right hemicolectomy, depression, tobacco use disorder, and homelessness who presents to the emergency department complaining of abdominal pain. Reports pain is in bilateral lower quadrants. Reports eating d oes not affect the pain. Received morphine in the ED. Reports morphine improved the pain. Denies fevers, chills, chest pain, fevers, or chills. Of note, she underwent a colonoscopy with Dr Delgadillo earlier this year in November for which showed normal biopsies. Review of Systems Narrative: A complete review of systems was obtained and negative except for HPI. Medications/Allergies Home Medications Medication Instructions Recorded Confirmed Last Taken Type buspirone 10 mg tablet 10 mg PO TID 05/02/23 05/02/23 Unknown History celecoxib 200 mg capsule 200 mg PO BID 05/02/23 05/02/23 Unknown History prazosin 1 mg capsule 1 mg PO BEDTIME 05/02/23 05/02/23 Unknown History trazodone 50 mg tablet 50 mg PO BEDTIME 05/02/23 05/02/23 Unknown History venlafaxine 150 mg 150 mg PO DAILY 05/02/23 05/02/23 Unknown History capsule,extended release 24 hr Allergies Allergy/AdvReac Type Severity Reaction Status Date / Time naproxen [From Aleve] Allergy Intermediate ADR-Agitate Verified 03/03/23 10:06 d adhesive Allergy ALGY-Hives Verified 03/03/23 10:06 PFSH Acute PFSH: Medical History (Updated 05/02/23 @ 17:09 by Nito Rudd MD) Colon cancer History of colon polyps Irritable bowel disease Surgical History History of colon resection History of tubal ligation Family History Mother Depression Social History Smoking and tobacco status: current every day smoker Vitals/I&O/Wt Last Vital Signs Temp 98.2 F 05/02/23 07:04 Pulse 63 05/02/23 11:30 Resp 14 05/02/23 09:53 BP 151/88 05/02/23 10:00 Pulse Ox 93 05/02/23 11:30 O2 Del Method Room Air 05/02/23 13:14 05/02/23 05/02/23 05/02/23 06:59 14:59 22:59 Intake Total 1300 / 1300 Balance 1300 / 1300 Weight last 48 hrs Weight 49.895 kg Physical Exam Narrative: General: Patient is awake. Alert. Frail appearing. Head: Normocephalic. Atraumatic. EOM intact. Neck: No JVD. Cardiovascular: RRR. No gallops. No murmurs. Lungs: Clear to auscultation, no use of accessory muscles, no crackles or wheezes. Skin: No jaundice. No rashes. Abdomen: Scaphoid. Multiple scars. Bowel sounds present. Mild TTP in all 4 quadrants. Extremities: No cyanosis or clubbing. Musculoskeletal: Poor muscular development. Neurological: No myoclonus. Moves all 4 extremities. Data 05/02/23 07:35 05/02/23 07:35 A&P Assessment and plan (1) Colitis: CT w/ colitis and duodenitis, as well as evidence of fluid overload Lipase is elevated Physical exam not c/w acute pancreatitis Start PPI Start oral abx Discontinue IV opiates Oral analgesics as needed Diet as tolerated If tolerating diet, likely discharge on Wednesday Case management consult for outpt resources on Wednesday (2) Abdominal pain: [place] as needed (3) Colon cancer: Colonoscopy in 11/2022 reviewed Outpatient follow up Qualifiers: Colon location: unspecified part of colon Qualified Code(s): C18.9 - Malignant neoplasm of colon, unspecified (4) Depression, unspecified: Continue home meds (5) PTSD (post-traumatic stress disorder): Continue home meds (6) Anxiety disorder, unspecified: Continue home meds Plan DVT ppx: Low risk Code Status: Full Code Attestations Medical Necessity Statement*: Patient presents with severe abd pain, found to have colitis and duodenitis with expected hospital course not to cross 2 midnights. Coding Level of Care Code Acute Code for [facility] Fwd Diagnoses Colitis K52.9 Abdominal pain R10.9 Colon cancer C18.9 Colon location: unspecified part of colon Depression, unspecified F32.A PTSD (post-traumatic stress disorder) F43.10 Anxiety disorder, unspecified F41.9
[2023-05-02] MEDS: pantoprazole DR 40 mg Tablet PO (17:40)
[2023-05-02] MEDS: CELEcoxib 200 mg Capsule PO (17:40)
[2023-05-02] MEDS: metroNIDAZOLE 500 MG Tablet PO (17:40)
[2023-05-02] MEDS: ciprofloxacin 500 mg Tablet PO (21:50)
[2023-05-02] MEDS: trazodone 50 mg Tablet PO (21:50)
[2023-05-02] MEDS: BuSPIRONE 10 mg Tablet PO (21:50)
[2023-05-02] MEDS: prazosin 1 mg Capsule PO (21:50)
[2023-05-03 03:50] VITALS: BP 162/89; PULSE 64; RESP 19; TEMP 36.8; O2SAT 93
[2023-05-03 07:21] VITALS: BP 157/80; PULSE 70; RESP 16; TEMP 36.8; O2SAT 96
[2023-05-03 08:33] VITALS: BP 157/80; PULSE 70; RESP 16; TEMP 36.8; O2SAT 96
--- NOTE | 2023-05-03 08:37 | PC.NURSE ---
This RN notified by TRIAL JUDGE that patient was not in her room at approx 0810 and she could not find her on the floor. apprentice painter brush notified. Daniela GUAJARDO searched the downstairs for patient, and notified security when patient was not found. This RN searched the main entrance and ER entrance and throughout the hallways. Dr. Rivera notified that patient was missing.
[2023-05-03 11:46] VITALS: BP 160/73; PULSE 70; RESP 18; TEMP 36.5; O2SAT 95
== END 2023-05-03 08:33 | disposition left against medical advice (07) ==
LOC: ER 10:54 → MEDSURG 12:54
PROVIDERS: Admitting Provider Internal Medicine; Emergency Provider Emergency Medicine; PCP Family Medicine; Visit Provider Internal Medicine
DX: K29.80 Duodenitis without bleeding (principal); K52.9 Noninfective gastroenteritis and colitis, unspecified; E87.6 Hypokalemia; F17.200 Nicotine dependence, unspecified, uncomplicated; Z85.038 Personal history of other malignant neoplasm of large intestine; Z90.49 Acquired absence of other specified parts of digestive tract; F32.A Depression, unspecified; Z53.29 Procedure and treatment not carried out because of patient's decision for other reasons; F43.10 Post-traumatic stress disorder, unspecified; Z86.010 Personal history of colon polyps; Z59.00 Homelessness unspecified; F41.9 Anxiety disorder, unspecified
CPT/HCPCS: 36415; 74177; 80053; 81003; 83690; 85025; 96361; 96374; 96375; 96376; 99285; G0378; J0744; J2270; J3490; J7030; J7120; Q9967

== ENCOUNTER 2023-05-05 18:03 | Emergency (ER) | payer OTHER, MEDICAID, SELFPAY ==
[2023-05-05 18:08] VITALS: BP 136/90; PULSE 96; RESP 18; TEMP 36.8; O2SAT 96; BMI 16.2
--- NOTE | 2023-05-05 18:12 | ED.C_ITS ---
HPI - Psych General: Chief Complaint: Psychiatric Symptoms Stated Complaint: SI Time Seen by Provider: 05/05/23 18:05 Source: patient and EMS Mode of arrival: EMS Limitations: no limitations History of Present Illness: 58-year-old female who states she is homeless she states she had been staying in a hotel last 2 days they kicked her out today she states she has had some depressions she called EMS she states she had some thoughts of suicide but no specific plan she is cooperative and calm here. Denies any worsening proving factors. Associated symptoms: Reports depression Review of Systems Const: Denies: fever(s), chills, body aches or change in appetite Eyes: Denies: blurry vision ENMT: Denies: throat pain or dental pain Card: Denies: chest pain Resp: Denies: dyspnea GI: Denies: abdominal pain, nausea, vomiting or diarrhea : Denies: dysuria Musc: Denies: neck pain or back pain Skin/Breast: Denies: rash Neuro: Denies: headache(s) Psych: Reports: depression PFSH ED PFSH: Medical History Colon cancer History of colon polyps Irritable bowel disease Surgical History History of colon resection History of tubal ligation Family History Mother Depression Social History Smoking and tobacco status: current every day smoker Physical Exam Const: COMMON NORMALS: no acute distress, patient oriented x3 and healthy appearing HENMT: COMMON NORMALS: normocephalic and atraumatic HEAD & SCALP: normocephalic and atraumatic Eye: COMMON NORMALS: conjunctivae normal CONJUNCTIVA: Yes conjunctivae normal Neck/C-Spine: COMMON NORMALS: full ROM and supple Chest: COMMONS NORMALS: normal inspection of the chest and normal palpation of entire chest wall Resp: COMMON NORMALS: normal respiratory effort, No retractions, No use of accessory muscles and clear to auscultation bilaterally AUSCULTATION: clear to auscultation bilaterally Cardio: COMMON NORMALS: regular rate, regular rhythm and No murmurs present (Cardio) RATE: regular rate RHYTHM: regular rhythm GI: COMMON NORMALS: Normal to inspection, nondistended, normoactive bowel sounds present, Soft to palpation, non-tender and no masses PALPATION: Yes Soft to palpation Extremity: COMMON NORMALS: normal to inspection and full ROM Neuro: COMMON NORMALS: patient oriented x3, moves all extremities and no focal motor deficits Psych: COMMON NORMALS: mental status grossly normal, Normal thought process present and cooperative MOOD & AFFECT: Yes depressed mood THOUGHT PROCESS: Normal thought process present Skin: COMMON NORMALS: no rashes or lesions noted and no wounds GENERAL SKIN EXAM: no rashes or lesions noted Course Vital Signs: Vital signs: Vital Signs Temperature 98.2 F 05/05/23 18:08 Pulse Rate 96 05/05/23 18:42 Respiratory Rate 18 05/05/23 18:42 Blood Pressure 136/90 05/05/23 18:08 Pulse Oximetry 96 05/05/23 18:42 Oxygen Delivery Me thod Room Air 05/05/23 18:08 MDM - Psych Medical Decision Making Patient presents here with depression she is also homeless. She does not have any suicidal plan to have her evaluated by Dr. Box of psychiatry who agrees with me that she is not imminent threat to herself or others she is stable for discharge she is to go to the crisis center tomorrow morning to try to get placed in a homeless long-term. Medical Records I reviewed the patient's medical records. Lab Data I reviewed the patient's lab results. 05/05/23 18:39 05/05/23 18:39 Laboratory Results WBC 8.6 10^3/uL (4.0-10.0) 05/05/23 18:39 RBC 3.82 10^6/uL (4.1-5.3) L 05/05/23 18:39 Hgb 11.7 g/dL (11.5-15.3) 05/05/23 18:39 Hct 36.8 % (37.0-47.0) L 05/05/23 18:39 MCV 96.3 fl (81-99) 05/05/23 18:39 MCH 30.6 pg (28.0-34.0) 05/05/23 18:39 MCHC 31.8 g/dL (30.0-36.0) 05/05/23 18:39 RDW 14.8 % (12.1-15.1) 05/05/23 18:39 Plt Count 251 10^3/cmm (130-400) 05/05/23 18:39 MPV 9.6 fL (7.4-10.4) 05/05/23 18:39 Neut % (Auto) 77.3 % 05/05/23 18:39 Lymph % (Auto) 13.7 % 05/05/23 18:39 [place] % (Auto) 7.7 % 05/05/23 18:39 Eos % (Auto) 0.5 % 05/05/23 18:39 Baso % (Auto) 0.4 % 05/05/23 18:39 Neut # (Auto) 6.63 10^3/uL (1.8-7.7) 05/05/23 18:39 Lymph # (Auto) 1.2 10^3/uL (0.8-4.8) 05/05/23 18:39 [place] # (Auto) 0.7 10^3/uL (0.2-0.9) 05/05/23 18:39 Eos # (Auto) 0.0 10^3/uL (0.0-0.8) 05/05/23 18:39 Baso # (Auto) 0.0 10^3/uL (0.0-0.1) 05/05/23 18:39 Nucleated RBC % (auto) 0 % 05/05/23 18:39 Nucleated RBCs # 0.0 /100WBC 05/05/23 18:39 Sodium 141 mmol/L (136-145) 05/05/23 18:39 Potassium 3.7 mmol/L (3.5-5.1) 05/05/23 18:39 Chloride 107 mmol/L (98-107) 05/05/23 18:39 Carbon Dioxide 22 mmol/L (22-29) 05/05/23 18:39 Anion Gap 15.7 (5-19) 05/05/23 18:39 BUN 10 mg/dL (6-20) 05/05/23 18:39 Creatinine 0.6 mg/dL (0.5-0.9) 05/05/23 18:39 GFR Calculation 102.7 mL/min (90-130) 05/05/23 18:39 Glucose 82 mg/dL (65-115) 05/05/23 18:39 Calculated Osmolality 290 mOsm/kg (285-295) 05/05/23 18:39 Calcium 8.8 mg/dL (8.5-10.5) 05/05/23 18:39 Total Bilirubin 0.3 mg/dL (0.15-1.2) 05/05/23 18:39 AST 32 U/L (0-32) 05/05/23 18:39 ALT 46 U/L (0-33) H 05/05/23 18:39 Alkaline Phosphatase 81 U/L (35-105) 05/05/23 18:39 Total Protein 6.1 g/dL (6.6-8.7) L 05/05/23 18:39 Albumin 4.0 g/dL (3.5-5.2) 05/05/23 18:39 Globulin 2.1 g/dL (1.3-4.6) 05/05/23 18:39 Salicylates < 0.3 mg/dL (3-10) L 05/05/23 18:39 Urine Opiates Screen Negative ng/mL (Negative) 05/05/23 18:22 Acetaminophen < 5.0 ug/mL (10-30) L 05/05/23 18:39 Ur Barbiturates Screen Negative ng/mL (Negative) 05/05/23 18:22 Ur Phencyclidine Scrn Negative ng/mL (Negative) 05/05/23 18:22 Ur Amphetamines Screen Negative ng/mL (Negative) 05/05/23 18:22 U Benzodiazepines Scrn Negative ng/mL (Negative) 05/05/23 18:22 Urine Cocaine Screen Negative ng/mL (Negative) 05/05/23 18:22 U Marijuana (THC) Screen Negative ng/mL (Negative) 05/05/23 18:22 Ethyl Alcohol < 10 mg/dL (0-10) 05/05/23 18:39 Discharge Plan Discharge Patient Disposition: Home Clinical Impression: Depression Condition: Stable Prescriptions: No Action celecoxib 200 mg capsule 200 mg PO BID trazodone 50 mg tablet 50 mg PO BEDTIME prazosin 1 mg capsule 1 mg PO BEDTIME venlafaxine 150 mg capsule,extended release 24hr 150 mg PO DAILY buspirone 10 mg tablet 10 mg PO TID Discharge Orders: Discharge ED (Routine); Ordered 05/05/23 Ordered By: Louis Camarena Referrals: Lauri Gaona DO [Primary Care Provider] - Discharge Diet: Advance as tolerated Discharge Activity: Resume usual activity Patient Instructions: Depression (ED) Coding Level of Care Code ED Wool Scourer for Rema Lucas
[2023-05-05 18:42] VITALS: PULSE 96; RESP 18; O2SAT 96
[2023-05-05 18:47] LABS: Basophils % 0.4 %; Eosinophils % 0.5 %; Hematocrit 36.8 % (37.0-47.0); Hemoglobin 11.7 g/dL (11.5-15.3); Lymphocytes # 1.2 10^3/uL (0.8-4.8); Lymphocytes % 13.7 %; Mean Corpuscular HGB Conc 31.8 g/dL (30.0-36.0); Mean Corpuscular Hemoglobin 30.6 pg (28.0-34.0); Mean Corpuscular Volume 96.3 fl (81-99); Mean Platelet Volume 9.6 fL (7.4-10.4); Monocytes # 0.7 10^3/uL (0.2-0.9); Monocytes % 7.7 %; Neutrophils # 6.63 10^3/uL (1.8-7.7); Neutrophils % 77.3 %; Nucleated Red Blood Cells % 0 %; Platelet Count 251 10^3/cmm (130-400); Red Blood Count 3.82 10^6/uL (4.1-5.3); Red Cell Distribution Width 14.8 % (12.1-15.1); White Blood Count 8.6 10^3/uL (4.0-10.0)
[2023-05-05 19:03] LABS: Acetaminophen < 5.0 ug/mL (10-30); Alanine Aminotransferase 46 U/L (0-33); Alcohol Level < 10 mg/dL (0-10); Alkaline Phosphatase 81 U/L (35-105); Anion Gap 15.7 (5-19); Aspartate Amino Transferase 32 U/L (0-32); Blood Urea Nitrogen 10 mg/dL (6-20); Calcium 8.8 mg/dL (8.5-10.5); Carbon Dioxide 22 mmol/L (22-29); Chloride 107 mmol/L (98-107); Globulin 2.1 g/dL (1.3-4.6); Glomerular Filtration Rate 102.7 mL/min (90-130); Glucose 82 mg/dL (65-115); Osmolality Calculated 290 mOsm/kg (285-295); Potassium 3.7 mmol/L (3.5-5.1); Salicylate < 0.3 mg/dL (3-10); Sodium 141 mmol/L (136-145); Total Bilirubin 0.3 mg/dL (0.15-1.2); Total Protein 6.1 g/dL (6.6-8.7)
[2023-05-05 19:06] LABS: Amphetamines Screen Urine Negative (Negative); Barbiturates Screen Urine Negative (Negative); Benzodiazepines Screen Urine Negative (Negative); Cocaine Screen Urine Negative (Negative); Opiate Screen Urine Negative (Negative); PCP Screen Urine Negative (Negative); THC Screen Urine Negative (Negative)
[2023-05-05 19:46] VITALS: RESP 16
== END 2023-05-05 19:47 | disposition home or self-care (01) ==
PROVIDERS: Emergency Provider Emergency Medicine; PCP Family Medicine
DX: F32.A Depression, unspecified (principal); Z59.00 Homelessness unspecified
CPT/HCPCS: 36415; 80053; 80306; 80307; 85025; 99283; Q3014

== ENCOUNTER 2023-07-03 11:03 | Emergency (ER) | payer OTHER, MEDICAID, SELFPAY ==
[2023-07-03 11:16] VITALS: BP 123/91; PULSE 95; RESP 16; O2SAT 98
--- NOTE | 2023-07-03 11:32 | ECG_ITS ---
[facility] Test Date: 2023-07-03 Pat Name: Barbara Hagen Department: Room: Gender: Female Visual Merchandiser: : 1965 Requested By: Ashok Khan Order Number: [id number] Royal MD: Elza Latif M.D. Measurements Intervals [place] Rate: 90 P: 72 LA: 134 QRS: -80 QRSD: 100 T: 74 QT: 348 QTc: 426 Interpretive Statements SINUS RHYTHM POSSIBLE RIGHT ATRIAL ENLARGEMENT [0.25mV P-WAVE] PATTERN CONSISTENT WITH PULMONARY DISEASE INCOMPLETE RIGHT BUNDLE BRANCH BLOCK [90+ ms QRS DURATION, TERMINAL R IN V1/V2, 40+ ms S IN I/aVL/V4/V5/V6] LEFT ANTERIOR FASCICULAR BLOCK [QRS AXIS <= -45, QR IN I, RS IN II] Compared to ECG 12/26/2022 01:44:25 Left anterior fascicular block now present Left-axis deviation no longer present Electronically Signed On 07-03-2023 12:04:23 CDT by Elza Latif M.D. [id number]
--- NOTE | 2023-07-03 12:28 | W.ED.PSYCHS ---
HPI - Psych General: Chief Complaint: Abdominal Pain Stated Complaint: abd pain Time Seen by Provider: 07/03/23 11:18 History of Present Illness: 58-year-old female with chronic abdominal concerns presents emergency department chief complaint of suicidal thoughts and ideations . Patient reports previously was placed into psych facility roughly 3 years ago she has a known history of reported stomach cancer. Patient reports having chronic abdominal pain which is making her feel suicidal she reports she been off her medications for quite some time reports a prior history of both depression and anxiety. It was also noted the patient is homeless. Patient reports that she has been doing psych facility before but did not seem to help her. Patient reports no current plan at this time. Patient reports she been off her medications for quite some time. Associated symptoms: Reports depression and suicidal ideation Review of Systems General: Reports: 10 or more systems reviewed and unremarkable except in HPI and below Const: Denies: fever(s), chills, fatigue or malaise Eyes: Denies: change in vision or blurry vision Card: Denies: chest pain or palpitations Resp: Denies: dyspnea or productive cough GI: Reports: abdominal pain; Denies: nausea or vomiting : Denies: flank pain Musc: Denies: extremity pain or extremity swelling Skin/Breast: Denies: rash or pruritus Neuro: Denies: headache(s) Psych: Reports: anxiety, depression and suicidal ideation Jasmeet/Lymph: Denies: easy bleeding All/Imm: Denies: urticaria, throat swelling or facial swelling [facility] ED PFSH: Medical History Colon cancer History of colon polyps Irritable bowel disease Surgical History History of colon resection History of tubal ligation Family History Mother Depression Social History Smoking and tobacco status: current every day smoker Physical Exam Narrative: EXAM NARRATIVE: Patient appears nontoxic appears in no obvious acute distress. Patient reports intermittent thoughts of suicidal thoughts and ideations reports no current plan Const: COMMON NORMALS: no acute distress, patient oriented x3 and healthy appearing HENMT: COMMON NORMALS: normocephalic and atraumatic HEAD & SCALP: normocephalic and atraumatic Eye: COMMON NORMALS: Equal, round and reactive pupils present and EOMs intact bilaterally PUPIL: Yes Equal, round and reactive pupils present Neck/C-Spine: COMMON NORMALS: full ROM, supple and no JVD Lymph: LYMPHATIC: no lymphadenopathy noted Chest: COMMONS NORMALS: normal inspection of the chest and normal palpation of entire chest wall Resp: COMMON NORMALS: normal respiratory effort, No retractions and clear to auscultation bilaterally EFFORT & INSPECTION: Yes able to speak in complete sentences and Yes symmetric chest movement AUSCULTATION: clear to auscultation bilaterally Cardio: COMMON NORMALS: no JVD, regular rate and regular rhythm RATE: regular rate RHYTHM: regular rhythm GI: COMMON NORMALS: Normal to inspection, nondistended, normoactive bowel sounds present, Soft to palpation and non-tender INSPECTION: Yes normal to inspection PALPATION: Yes Soft to palpation : COMMON NORMALS: Yes no CVA tenderness BLADDER/KIDNEY EXAM: Yes no CVA tenderness Back/Pelvis: COMMON NORMALS: no CVA tenderness Extremity: COMMON NORMALS: normal to inspection and full ROM Neuro: COMMON NORMALS: patient oriented x3, CN's II-XII intact bilaterally, moves all extremities and no focal motor deficits Psych: COMMON NORMALS: mental status grossly normal, Normal thought process present, cooperative and normal affect THOUGHT PROCESS: Normal thought process present Skin: COMMON NORMALS: no rashes or lesions noted GENERAL SKIN EXAM: no rashes or lesions noted Course Vital Signs: Vital signs: Vital Signs Pulse Rate 63 07/03/23 14:23 Respiratory Rate 18 07/03/23 14:23 Blood Pressure 133/84 07/03/23 14:23 Pulse Oximetry 97 07/03/23 14:23 Oxygen Delivery Me thod Room Air 07/03/23 14:23 MDM - Psych Medical Decision Making Due to the patient's symptoms and condition will be do medical screening examination and then be contacting Dr. Box on-call psychiatrist for further eval patient's family medical clearance she is not currently suicidal discussed patient case with Dr. Box that reports the patient can be discharged home when she can follow-up with the crisis stabilization unit. During this discussion the patient elected leave AGAINST MEDICAL ADVICE patient does not appear to be a danger to herself or others there is concerns of social concerns due to her being homeless as well as her noncompliance with her medical therapy patient was observed leaving the ER in no obvious acute distress. Lab Data 07/03/23 12:33 07/03/23 12:33 Laboratory Results WBC 7.1 10^3/uL (4.0-10.0) 07/03/23 12:33 RBC 4.51 10^6/uL (4.1-5.3) 07/03/23 12:33 Hgb 13.7 g/dL (11.5-15.3) 07/03/23 12:33 Hct 42.3 % (37.0-47.0) 07/03/23 12:33 MCV 93.8 fl (81-99) 07/03/23 12:33 MCH 30.4 pg (28.0-34.0) 07/03/23 12:33 MCHC 32.4 g/dL (30.0-36.0) 07/03/23 12:33 RDW 14.1 % (12.1-15.1) 07/03/23 12:33 Plt Count 306 10^3/cmm (130-400) 07/03/23 12:33 MPV 10.2 fL (7.4-10.4) 07/03/23 12:33 Neut % (Auto) 75.3 % 07/03/23 12:33 Lymph % (Auto) 16.8 % 07/03/23 12:33 [place] % (Auto) 6.6 % 07/03/23 12:33 Eos % (Auto) 0.6 % 07/03/23 12:33 Baso % (Auto) 0.4 % 07/03/23 12:33 Neut # (Auto) 5.38 10^3/uL (1.8-7.7) 07/03/23 12:33 Lymph # (Auto) 1.2 10^3/uL (0.8-4.8) 07/03/23 12:33 [place] # (Auto) 0.5 10^3/uL (0.2-0.9) 07/03/23 12:33 Eos # (Auto) 0.0 10^3/uL (0.0-0.8) 07/03/23 12:33 Baso # (Auto) 0.0 10^3/uL (0.0-0.1) 07/03/23 12:33 Nucleated RBC % (auto) 0 % 07/03/23 12:33 Nucleated RBCs # 0.0 /100WBC 07/03/23 12:33 Sodium 142 mmol/L (136-145) 07/03/23 12:33 Potassium 4.2 mmol/L (3.5-5.1) 07/03/23 12:33 Chloride 104 mmol/L (98-107) 07/03/23 12:33 Carbon Dioxide 29 mmol/L (22-29) 07/03/23 12:33 Anion Gap 13.2 (5-19) 07/03/23 12:33 BUN 14 mg/dL (6-20) 07/03/23 12:33 Creatinine 0.8 mg/dL (0.5-0.9) 07/03/23 12:33 GFR Calculation 73.7 mL/min (90-130) L 07/03/23 12:33 Glucose 103 mg/dL (65-115) 07/03/23 12:33 Calculated Osmolality 295 mOsm/kg (285-295) 07/03/23 12:33 Calcium 9.6 mg/dL (8.5-10.5) 07/03/23 12:33 Total Bilirubin 0.2 mg/dL (0.15-1.2) 07/03/23 12:33 AST 18 U/L (0-32) 07/03/23 12:33 ALT 17 U/L (0-33) 07/03/23 12:33 Alkaline Phosphatase 103 U/L (35-105) 07/03/23 12:33 Total Protein 6.8 g/dL (6.6-8.7) 07/03/23 12:33 Albumin 4.4 g/dL (3.5-5.2) 07/03/23 12:33 Globulin 2.4 g/dL (1.3-4.6) 07/03/23 12:33 Lipase 29 U/L (13-60) 07/03/23 12:33 TSH 1.24 uIU/mL (0.27-4.20) 07/03/23 12:33 Urine Color Yellow (Yellow) 07/03/23 12:26 Urine Appearance Clear (CLEAR) 07/03/23 12:26 Urine pH 5 (5-7) 07/03/23 12:26 Ur Specific [place] 1.015 (1.005-1.030) 07/03/23 12:26 Urine Protein Neg (Negative) 07/03/23 12:26 Urine Glucose (UA) Norm (Normal) 07/03/23 12:26 Urine Ketones Negative (Negative) 07/03/23 12:26 Urine Blood Neg (Negative) 07/03/23 12:26 Urine Nitrate Negative (Negative) 07/03/23 12:26 Urine Bilirubin Neg (Negative) 07/03/23 12:26 Urine Urobilinogen Norm mg/dL (Negative) 07/03/23 12:26 Ur Leukocyte Esterase Negative (Negative) 07/03/23 12:26 Salicylates < 0.3 mg/dL (3-10) L 07/03/23 12:33 Urine Opiates Screen Negative ng/mL (Negative) 07/03/23 12:26 Acetaminophen < 5.0 ug/mL (10-30) L 07/03/23 12:33 Ur Barbiturates Screen Negative ng/mL (Negative) 07/03/23 12:26 Ur Phencyclidine Scrn Negative ng/mL (Negative) 07/03/23 12:26 Ur Amphetamines Screen Negative ng/mL (Negative) 07/03/23 12:26 U Benzodiazepines Scrn Negative ng/mL (Negative) 07/03/23 12:26 Urine Cocaine Screen Negative ng/mL (Negative) 07/03/23 12:26 U Marijuana (THC) Screen Negative ng/mL (Negative) 07/03/23 12:26 Ethyl Alcohol < 10 mg/dL (0-10) 07/03/23 12:33 Discharge Plan Discharge Patient Disposition: Home Clinical Impression: Chronic abdominal pain, Depression, Homeless Condition: Stable Prescriptions: No Action celecoxib 200 mg capsule 200 mg PO BID trazodone 50 mg tablet 50 mg PO BEDTIME prazosin 1 mg capsule 1 mg PO BEDTIME venlafaxine 150 mg capsule,extended release 24hr 150 mg PO DAILY buspirone 10 mg tablet 10 mg PO TID olanzapine 20 mg tablet 20 mg PO QPM Discharge Orders: Discharge ED (Routine); Ordered 07/03/23 Ordered By: Ashok Khan Referrals: Lauri Gaona DO [Primary Care Provider] - Patient Instructions: Abdominal Pain (ED), Opioid Safety, Pain Management Coding Level of Care Code ED Tobacco Cloth Reclaimer for Rema Lucas
--- NOTE | 2023-07-03 12:29 | PC.PHAR ---
PT STATES SHE TAKES CARE OF HER OWN MEDICATIONS-PT STATES HER MEDS GOT STOLEN IN [place] PT STATES SHE IS HOMELESS-PT STATES SHE HAS BEEN OUT OF HER MEDS FOR 2 WEEKS-NOTES ARE MADE IN THE PHARMACY COMMENTS
[2023-07-03 12:31] LABS: Add Urine Microscopic? NO; Charge for UA Resulting for Rev
[2023-07-03 12:33] LABS: Bilirubin Urine Neg (Negative); Blood Urine Neg (Negative); Glucose Urine UA Norm (Normal); Ketones Urine Negative (Negative); Leukocyte Esterase Urine Negative (Negative); Nitrate Urine Negative (Negative); Protein Urine Neg (Negative); Specific Gravity, Urine 1.015 (1.005-1.030); Urine Appearance Clear (CLEAR); Urine Color Yellow (Yellow); Urobilinogen Urine Norm (Negative); pH Urine 5 (5-7)
[2023-07-03 12:42] LABS: Amphetamines Screen Urine Negative (Negative); Barbiturates Screen Urine Negative (Negative); Benzodiazepines Screen Urine Negative (Negative); Cocaine Screen Urine Negative (Negative); Opiate Screen Urine Negative (Negative); PCP Screen Urine Negative (Negative); THC Screen Urine Negative (Negative)
[2023-07-03 13:18] LABS: Basophils % 0.4 %; Eosinophils % 0.6 %; Hematocrit 42.3 % (37.0-47.0); Hemoglobin 13.7 g/dL (11.5-15.3); Lymphocytes # 1.2 10^3/uL (0.8-4.8); Lymphocytes % 16.8 %; Mean Corpuscular HGB Conc 32.4 g/dL (30.0-36.0); Mean Corpuscular Hemoglobin 30.4 pg (28.0-34.0); Mean Corpuscular Volume 93.8 fl (81-99); Mean Platelet Volume 10.2 fL (7.4-10.4); Monocytes # 0.5 10^3/uL (0.2-0.9); Monocytes % 6.6 %; Neutrophils # 5.38 10^3/uL (1.8-7.7); Neutrophils % 75.3 %; Nucleated Red Blood Cells % 0 %; Platelet Count 306 10^3/cmm (130-400); Red Blood Count 4.51 10^6/uL (4.1-5.3); Red Cell Distribution Width 14.1 % (12.1-15.1); White Blood Count 7.1 10^3/uL (4.0-10.0)
[2023-07-03 13:23] LABS: Alanine Aminotransferase 17 U/L (0-33); Albumin Level 4.4 g/dL (3.5-5.2); Alkaline Phosphatase 103 U/L (35-105); Anion Gap 13.2 (5-19); Aspartate Amino Transferase 18 U/L (0-32); Blood Urea Nitrogen 14 mg/dL (6-20); Calcium 9.6 mg/dL (8.5-10.5); Carbon Dioxide 29 mmol/L (22-29); Chloride 104 mmol/L (98-107); Globulin 2.4 g/dL (1.3-4.6); Glomerular Filtration Rate 73.7 mL/min (90-130); Glucose 103 mg/dL (65-115); Lipase 29 U/L (13-60); Osmolality Calculated 295 mOsm/kg (285-295); Potassium 4.2 mmol/L (3.5-5.1); Sodium 142 mmol/L (136-145); Thyroid Stimulating Hormone 1.24 uIU/mL (0.27-4.20); Total Bilirubin 0.2 mg/dL (0.15-1.2); Total Protein 6.8 g/dL (6.6-8.7)
[2023-07-03 13:30] LABS: Acetaminophen < 5.0 ug/mL (10-30); Alcohol Level < 10 mg/dL (0-10); Salicylate < 0.3 mg/dL (3-10)
[2023-07-03 14:23] VITALS: BP 133/84; PULSE 63; RESP 18; O2SAT 97
== END 2023-07-03 15:35 | disposition home or self-care (01) ==
PROVIDERS: Emergency Provider Emergency Medicine; PCP Family Medicine
DX: F32.A Depression, unspecified (principal); G89.29 Other chronic pain; R10.9 Unspecified abdominal pain; Z59.00 Homelessness unspecified; Z85.038 Personal history of other malignant neoplasm of large intestine; F17.210 Nicotine dependence, cigarettes, uncomplicated
CPT/HCPCS: 36415; 80053; 80306; 80307; 81003; 83690; 84443; 85025; 93005; 99284

== ENCOUNTER 2023-07-30 13:37 | Outpatient (CLI) | payer OTHER, MEDICAID, SELFPAY ==
--- NOTE | 2023-07-30 13:29 | CSC.CASEMA_ITS ---
[facility] [place] Current Presentation: Client appears to be having difficulty organizing thoughts and is extremely forgetful. Intervention: Client requested to obtain some rest in the lounge. Client Response: Client thanked [facility] [place]. Client Barriers: Client is staying in [facility]. Outcome of Encounter: Client left facility to visit her medical appointment. Current SI: None Current HI: None
--- NOTE | 2023-07-30 13:29 | W.CSC.CMN ---
[facility] [place] Presentation: Client appears to be having difficulty organizing thoughts and is extremely forgetful. Intervention: Client requested to obtain some rest in the lounge. Client Response: Client thanked [facility] [place]. Client Barriers: [facility] Outcome of Encounter: Client left facility to visit her medical appointment. Current SI: None Current HI: None
--- NOTE | 2023-07-30 14:18 | MM_ITS ---
WS: [id number] Bilateral screening 3D tomosynthesis digital mammogram, 07/30/2023 Clinical Data: SCREE Comparison: 09/23/2019. Findings: The breast parenchymal pattern shows heterogeneous density. No spiculated masses or clustered calcifi cations are seen. There are no secondary signs of carcinoma. There are benign ductal calcifications i n both breasts. Impression: 1. Negative bilateral mammogram unchanged. 2. Recommend annual screening mammograms. MM/[place] [id number] BIRADS: 1-Negative FOLLOW UP: 1 Year Follow-up The [facility] grocery checker was used.
== END 2023-07-30 13:38 | disposition home or self-care (01) ==
LOC: RAD 13:39
PROVIDERS: PCP Family Medicine; Visit Provider Family Medicine
DX: Z12.31 Encounter for screening mammogram for malignant neoplasm of breast (principal)
CPT/HCPCS: 77063; 77067